=== PATIENT | female | born 1940 | race Caucasian/White ===

== ENCOUNTER 2017-09-07 12:55 | Inpatient (IN) | payer MEDICARE, BC ==
[2017-09-07] MEDS ORDERED: HYDROmorphone 1 MG/ML Syringe IVPUSH ONE (13:28)
--- NOTE | 2017-09-07 13:30 | EDM.PDOC ---
ED HPI GENERAL MEDICAL PROBLEM - General Chief Complaint: General Stated Complaint: MED[facility] Time Seen by Provider: 09/07/17 13:29 Source of Information: Reports: Patient History Limitations: Reports: No Limitations - History of Present Illness INITIAL COMMENTS - FREE TEXT/NARRATIVE: pt had a sudden onset of severe epigastric pain going to her back and then this moved into the chest. She has been mildly sob. Onset: Today, Sudden Duration: Hour(s): Location: Reports: Abdomen Associated Symptoms: Reports: Chest Pain Epigastric Pain Score (Numeric/FACES): 10 - Related Data Allergies Allergy/AdvReac Type Severity Reaction Status Date / Time No Known Allergies Allergy Verified 06/07/16 19:03 Home Meds: Home Meds Fluticasone Propionate [Flovent] 2 puff INH BID 06/07/16 [History] Losartan [Cozaar] 100 mg PO DAILY 06/07/16 [History] Metoprolol Tartrate 50 mg PO BID 06/07/16 [History] Past Medical History HEENT History: Reports: Hard of Hearing, Impaired Vision Cardiovascular History: Reports: Hypertension, [place] Respiratory History: Reports: Asthma, Pneumonia, Recurrent, 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: , 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 Musculoskeletal History: Reports: Arthritis, Fracture Other Musculoskeletal History: Feet Psychiatric History: Reports: Depression Dermatologic History: Reports: Other (See Below) Other Dermatologic History: rash - Infectious Disease History Infectious Disease History: Reports: Chicken Pox, Measles, Mumps - Past Surgical History HEENT Surgical History: Reports: Cataract Surgery GI Surgical History: Reports: Appendectomy, Colonoscopy, Hernia, Inguinal Female Surgical History: Reports: Hysterectomy, Salpingo-Oophorectomy Musculoskeletal Surgical History: Reports: Knee Replacement Social & Family History - Tobacco Use Smoking Status *Q: Never Smoker Second Hand Smoke Exposure: No - Caffeine Use Caffeine Use: Reports: Coffee - Recreational Drug Use Recreational Drug Use: No ED ROS GENERAL - Review of Systems Review Of Systems: See Below Constitutional: Reports: No Symptoms HEENT: Reports: No Symptoms Respiratory: Reports: No Symptoms Cardiovascular: Reports: Chest Pain, Other ( this seemes to move up from the abdoman. ) Endocrine: Reports: No Symptoms GI/Abdominal: Reports: Abdominal Pain, Other ( severe acute onset pain in the epigastric area. ) : Reports: No Symptoms Musculoskeletal: Reports: No Symptoms Skin: Reports: No Symptoms Neurological: Reports: No Symptoms Psychiatric: Reports: No Symptoms ED EXAM, GENERAL - Physical Exam Exam: See Below Free Text/Narrative:: pt arrived with severe pain in the upper bdoman which extended to the chest. It did not hurt when she took a deep breath. Her ekg showed a bundle branch block which was not new to her. Exam Limited By: No Limitations General Appearance: Alert, Severe Distress, Other (pupils are equal and reactive. ) Ears: Normal TMs Nose: Normal Inspection Throat/Mouth: Normal Inspection Head: Atraumatic Neck: Normal Inspection Respiratory/Chest: No Respiratory Distress Cardiovascular: Regular Rate, Rhythm GI/Abdominal: Soft, Non-Tender Rectal (Female) Exam: Deferred Back Exam: Normal Inspection Extremities: Normal Inspection Neurological: Alert, Oriented, Normal Cognition Course - Vital Signs Last Recorded V/S: Last Vital Signs Temp 34.9 C L 09/07/17 13:07 Pulse 65 09/07/17 15:39 Resp 18 09/07/17 15:39 BP 135/112 H 09/07/17 15:39 Pulse Ox 90 L 09/07/17 15:39 - Orders/Labs/Meds Orders: Active Orders 24 hr Category Date Time Status Abdomen Ltd [US] Stat Exams 09/07/17 14:24 Ordered UA W/MICROSCOPIC [URIN] Urgent Lab 09/07/17 13:21 Ordered Sodium Chloride 0.9% [Normal Saline] 1,000 ml Med 09/07/17 14:30 Active IV ASDIRECTED Sodium Chloride 0.9% [Normal Saline] 1,000 ml Med 09/07/17 15:30 Active IV ASDIRECTED Medication Orders Sodium Chloride (Normal Saline) 1,000 mls @ 999 mls/hr IV ASDIRECTED [facility] Last Admin: 09/07/17 14:33 Dose: 999 mls/hr Sodium Chloride (Normal Saline) 1,000 mls @ 999 mls/hr IV ASDIRECTED [facility] Last Admin: 09/07/17 15:38 Dose: 999 mls/hr Labs: Laboratory Tests 09/07/17 09/07/17 09/07/17 Range/Units 13:43 13:46 13:46 WBC 13.3 H (4.5-11.0) K/uL RBC 5.18 (3.30-5.50) M/uL Hgb 15.6 H (12.0-15.0) g/dL Hct 46.3 (36.0-48.0) % MCV 89 (80-98) fL MCH 30 (27-31) pg MCHC 34 (32-36) % Plt Count 241 (150-400) K/uL Neut % (Auto) 85 H (36-66) % Lymph % (Auto) 9 L (24-44) % [place] % (Auto) 6 (2-6) % Eos % (Auto) 0 L (2-4) % Baso % (Auto) 0 (0-1) % D-Dimer, Quantitative (0.0-400.0) ng/mL Sodium (140-148) mmol/L Potassium (3.6-5.2) mmol/L Chloride (100-108) mmol/L Carbon Dioxide (21-32) mmol/L Anion Gap (5.0-14.0) mmol/L BUN (7-18) mg/dL Creatinine (0.6-1.0) mg/dL Est Cr Clr Drug Dosing mL/min Estimated GFR (MDRD) (>60) Glucose (74-106) mg/dL Calcium (8.5-10.1) mg/dL Total Bilirubin (0.2-1.0) mg/dL AST (15-37) U/L ALT (12-78) U/L Alkaline Phosphatase (46-116) U/L Creatine Kinase (26-192) U/L Troponin I < 0.017 (0.000-0.056) ng/mL C-Reactive Protein (0.0-0.3) mg/dL Total Protein (6.4-8.2) g/dL Albumin (3.4-5.0) g/dL Globulin (2.3-3.5) g/dL Albumin/Globulin Ratio (1.2-2.2) Amylase 1384 H (25-115) U/L Lipase (73-393) U/L 09/07/17 09/07/17 09/07/17 Range/Units 13:46 13:46 13:46 WBC (4.5-11.0) K/uL RBC (3.30-5.50) M/uL Hgb (12.0-15.0) g/dL Hct (36.0-48.0) % MCV (80-98) fL MCH (27-31) pg MCHC (32-36) % Plt Count (150-400) K/uL Neut % (Auto) (36-66) % Lymph % (Auto) (24-44) % [place] % (Auto) (2-6) % Eos % (Auto) (2-4) % Baso % (Auto) (0-1) % D-Dimer, Quantitative 1410 H (0.0-400.0) ng/mL Sodium 140 (140-148) mmol/L Potassium 4.3 (3.6-5.2) mmol/L Chloride 103 (100-108) mmol/L Carbon Dioxide 26 (21-32) mmol/L Anion Gap 10.8 (5.0-14.0) mmol/L BUN 27 H (7-18) mg/dL Creatinine 1.3 H (0.6-1.0) mg/dL Est Cr Clr Drug Dosing 32.61 mL/min Estimated GFR (MDRD) 40 L (>60) Glucose 196 H (74-106) mg/dL Calcium 9.5 (8.5-10.1) mg/dL Total Bilirubin 1.1 H D (0.2-1.0) mg/dL AST 320 H D (15-37) U/L ALT 243 H (12-78) U/L Alkaline Phosphatase 133 H (46-116) U/L Creatine Kinase 70 (26-192) U/L Troponin I (0.000-0.056) ng/mL C-Reactive Protein 0.72 H (0.0-0.3) mg/dL Total Protein 7.2 (6.4-8.2) g/dL Albumin 3.4 (3.4-5.0) g/dL Globulin 3.8 H (2.3-3.5) g/dL Albumin/Globulin Ratio 0.9 L (1.2-2.2) Amylase (25-115) U/L Lipase 71256 H (73-393) U/L Meds: Medications Generic Name Dose Route Start Last Admin Trade Name Freq PRN Reason Stop Dose Admin Sodium Chloride 1,000 mls @ 999 mls/hr 09/07/17 14:30 09/07/17 14:33 Normal Saline IV 999 mls/hr ASDIRECTED [facility] Administration Sodium Chloride 1,000 mls @ 999 mls/hr 09/07/17 15:30 09/07/17 15:38 Normal Saline IV 999 mls/hr ASDIRECTED [facility] Administration Discontinued Medications Generic Name Dose Route Start Last Admin Trade Name [place] PRN Reason Stop Dose Admin Hydromorphone HCl 1 mg 09/07/17 13:28 Dilaudid IVPUSH 09/07/17 13:29 Q1H ONE Hydromorphone HCl 1 mg 09/07/17 13:41 Dilaudid IM 09/07/17 13:42 ONETIME ONE Hydromorphone HCl 0.5 mg 09/07/17 14:21 09/07/17 14:33 Dilaudid IVPUSH 09/07/17 14:22 0.5 mg ONETIME ONE Administration Hydromorphone HCl Confirm 09/07/17 14:39 09/07/17 15:06 Dilaudid Administered 09/07/17 14:40 Not Given Dose 0.5 mg .ROUTE .[facility] ONE - Re-Assessments/Exams Free Text/Narrative Re-Assessment/Exam: 09/07/17 14:31 pt has a elevated lipase and her liver enzymes are elevated. Will obtain a limited abdomanal US. 09/07/17 14:32 09/07/17 15:47 us reveals a gb thickened wall. Some fluid around the gb, alot of stones. Her lipase and amylase are elevated. Her pain is muich better at this time. Her vital signs look good. Departure - Departure Time of Disposition: 15:49 Disposition: Admitted As Inpatient 66 Condition: Fair Clinical Impression: Pancreatitis, Cholecystitis, Cholelithiasis, Left bundle branch block - Discharge Information Referrals: PCP,None [Primary Care Provider] - Forms: ED Department Discharge Care Plan Goals: admit to Dr humphries - My Orders Last 24 Hours: My Active Orders 09/07/17 13:21 UA W/MICROSCOPIC [URIN] Urgent 09/07/17 14:24 Abdomen Ltd [US] Stat 09/07/17 14:30 Sodium Chloride 0.9% [Normal Saline] 1,000 ml IV ASDIRECTED 09/07/17 15:30 Sodium Chloride 0.9% [Normal Saline] 1,000 ml IV ASDIRECTED - Assessment/Plan Last 24 Hours: My Active Orders 04/21/18 13:21 UA W/MICROSCOPIC [URIN] Urgent 09/07/17 14:24 Abdomen Ltd [US] Stat 09/07/17 14:30 Sodium Chloride 0.9% [Normal Saline] 1,000 ml IV ASDIRECTED 09/07/17 15:30 Sodium Chloride 0.9% [Normal Saline] 1,000 ml IV ASDIRECTED
[2017-09-07] MEDS ORDERED: HYDROmorphone 1 MG/ML Syringe IM ONE (13:41)
[2017-09-07] MEDS ORDERED: HYDROmorphone 0.5 MG/0.5 ML Syringe IVPUSH ONE (14:21)
[2017-09-07] MEDS ORDERED: Sodium Chloride 0.9% 1,000 ML IV SCH ×2 (14:30→15:30)
[2017-09-07] MEDS ORDERED: HYDROmorphone 0.5 MG/0.5 ML Syringe ONE (14:39)
--- NOTE | 2017-09-07 17:50 | PCM.HP ---
H&P History of Present Illness - General Date of Service: 09/07/17 Admit Problem/Dx: Admission Diagnosis/Problem Admission Diagnosis/Problem Pancreatitis Source of Information: Patient, Family, Provider, RN Notes Reviewed History Limitations: Reports: No Limitations - History of Present Illness Initial Comments - Free Text/Narative: This patient is a 77-year-old woman who is admitted through the emergency department for further evaluation and management of pancreatitis and cholecystitis. She felt well until this morning when she developed abrupt onset of supraumbilical abdominal pain associated with nausea vomiting and diaphoresis. Pain is described as a sharp intense pain occurring in the supraumbilical region of the abdomen without radiation. She is noted no precipitating or relieving factors, pain has improved after she received pain medication in the emergency department. White blood cell count is mildly to moderately elevated, ultrasound of the abdomen shows evidence of gallbladder wall thickening as well as several stones within the gallbladder. She denies significant alcohol intake. D-dimer was noted to be elevated when obtained in the emergency department, she does have a known history of deep vein thrombosis as well as pulmonary emboli. Epigastric Pain Score (Numeric/FACES): 10 - Related Data Allergies/Adverse Reactions: Allergies Allergy/AdvReac Type Severity Reaction Status Date / Time No Known Allergies Allergy Verified 06/07/16 19:03 Home Medications: Home Meds Fluticasone Propionate [Flovent] 2 puff INH BID 06/07/16 [History] Losartan [Cozaar] 100 mg PO DAILY 06/07/16 [History] Metoprolol Tartrate 37.5 mg PO BID 06/07/16 [History] Albuterol/Ipratropium [Combivent Respimat] 1 puff INH QID 09/07/17 [History] Furosemide 1 tab PO DAILY 09/07/17 [History] Multivitamin [Daily Derrick] 1 tab PO DAILY 09/07/17 [History] Simvastatin [Zocor] 1 tab PO BEDTIME 09/07/17 [History] Past Medical History HEENT History: Reports: Hard of Hearing, Impaired Vision Cardiovascular History: Reports: Hypertension, [place] Respiratory History: Reports: Asthma, 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, Recurrent, 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: , 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 Musculoskeletal History: Reports: Arthritis, Fracture Other Musculoskeletal History: Feet Psychiatric History: Reports: Depression Dermatologic History: Reports: Other (See Below) Other Dermatologic History: rash - Infectious Disease History Infectious Disease History: Reports: Chicken Pox, Measles, Mumps - Past Surgical History HEENT Surgical History: Reports: Cataract Surgery GI Surgical History: Reports: Appendectomy, Colonoscopy, Hernia, Inguinal Female Surgical History: Reports: Hysterectomy, Salpingo-Oophorectomy Musculoskeletal Surgical History: Reports: Knee Replacement Social & Family History - Tobacco Use Smoking Status *Q: Never Smoker Second Hand Smoke Exposure: No - Caffeine Use Caffeine Use: Reports: Coffee - Recreational Drug Use Recreational Drug Use: No H&P Review of Systems - Review of Systems: Review Of Systems: See Below General: Reports: Diaphoresis, Decreased Appetite. Denies: Fever, Chills HEENT: Reports: No Symptoms Pulmonary: Reports: No Symptoms Cardiovascular: Reports: No Symptoms Gastrointestinal: Reports: Abdominal Pain, Diarrhea, Decreased Appetite, Distension, Nausea, Vomiting. Denies: Black Stool, Bloody Stool, Constipation, Difficulty Swallowing Genitourinary: Reports: No Symptoms Musculoskeletal: Reports: No Symptoms Skin: Reports: No Symptoms Psychiatric: Reports: No Symptoms Neurological: Reports: No Symptoms Hematologic/Lymphatic: Reports: No Symptoms Immunologic: Reports: No Symptoms Exam - Exam Exam: See Below - Vital Signs Vital Signs: Last Vital Signs Temp 94.8 F L 09/07/17 13:07 Pulse 61 09/07/17 17:12 Resp 14 09/07/17 17:12 BP 233/96 H 09/07/17 17:14 Pulse Ox 93 L 09/07/17 17:12 Weight: 259 lb - Exam Quality Assessment: DVT Prophylaxis General: Alert, Oriented, Cooperative, Mild Distress HEENT: Conjunctiva Clear, Hearing Intact, Normal Nasal Septum, Posterior Pharynx Clear, Pupils Equal. No: Mucosa Moist & [place] Neck: Supple, Trachea Midline, +2 Carotid Pulse wo Bruit Lungs: Clear to Auscultation, Normal Respiratory Effort Cardiovascular: Regular Rate, Regular Rhythm, Normal S1, Normal S2. No: Systolic Murmur, Diastolic Murmur GI/Abdominal Exam: Soft, No Organomegaly, Distended, Tender. No: Guarding, Rigid, Rebound Back Exam: Normal Inspection, Full Range of Motion Extremities: Non-Tender, No Pedal Edema Skin: Warm, Dry, Intact Neurological: Cranial Nerves Intact, Strength Equal Bilateral, Normal Speech, Normal Tone, Sensation Intact. No: Focal Deficit Neuro Extensive - Mental Status: Alert, Oriented x3, Normal Mood/Affect, Normal Cognition, Memory Intact - Patient Data Lab Results Last 24 hrs: Laboratory Results - last 24 hr 09/07/17 09/07/17 09/07/17 Range/Units 13:43 13:46 13:46 WBC 13.3 H (4.5-11.0) K/uL RBC 5.18 (3.30-5.50) M/uL Hgb 15.6 H (12.0-15.0) g/dL Hct 46.3 (36.0-48.0) % MCV 89 (80-98) fL MCH 30 (27-31) pg MCHC 34 (32-36) % Plt Count 241 (150-400) K/uL Neut % (Auto) 85 H (36-66) % Lymph % (Auto) 9 L (24-44) % [place] % (Auto) 6 (2-6) % Eos % (Auto) 0 L (2-4) % Baso % (Auto) 0 (0-1) % D-Dimer, Quantitative (0.0-400.0) ng/mL Sodium (140-148) mmol/L Potassium (3.6-5.2) mmol/L Chloride (100-108) mmol/L Carbon Dioxide (21-32) mmol/L Anion Gap (5.0-14.0) mmol/L BUN (7-18) mg/dL Creatinine (0.6-1.0) mg/dL Est Cr Clr Drug Dosing mL/min Estimated GFR (MDRD) (>60) Glucose (74-106) mg/dL Calcium (8.5-10.1) mg/dL Total Bilirubin (0.2-1.0) mg/dL AST (15-37) U/L ALT (12-78) U/L Alkaline Phosphatase (46-116) U/L Creatine Kinase (26-192) U/L Troponin I < 0.017 (0.000-0.056) ng/mL C-Reactive Protein (0.0-0.3) mg/dL Total Protein (6.4-8.2) g/dL Albumin (3.4-5.0) g/dL Globulin (2.3-3.5) g/dL Albumin/Globulin Ratio (1.2-2.2) Amylase 1384 H (25-115) U/L Lipase (73-393) U/L Urine Color Urine Appearance Urine pH (4.5-8.0) Ur Specific [place] (1.008-1.030) Urine Protein (NEGATIVE) mg/dL Urine Glucose (UA) (NEGATIVE) mg/dL Urine Ketones (NEGATIVE) mg/dL Urine Occult Blood (NEGATIVE) Urine Nitrite (NEGATIVE) Urine Bilirubin (NEGATIVE) Urine Urobilinogen (NORMAL) mg/dL Ur Leukocyte Esterase (NEGATIVE) Urine RBC (0-5) Urine WBC (0-5) Ur Epithelial Cells Amorphous Sediment Urine Bacteria Urine Mucus 09/07/17 09/07/17 09/07/17 Range/Units 13:46 13:46 13:46 WBC (4.5-11.0) K/uL RBC (3.30-5.50) M/uL Hgb (12.0-15.0) g/dL Hct (36.0-48.0) % MCV (80-98) fL MCH (27-31) pg MCHC (32-36) % Plt Count (150-400) K/uL Neut % (Auto) (36-66) % Lymph % (Auto) (24-44) % [place] % (Auto) (2-6) % Eos % (Auto) (2-4) % Baso % (Auto) (0-1) % D-Dimer, Quantitative 1410 H (0.0-400.0) ng/mL Sodium 140 (140-148) mmol/L Potassium 4.3 (3.6-5.2) mmol/L Chloride 103 (100-108) mmol/L Carbon Dioxide 26 (21-32) mmol/L Anion Gap 10.8 (5.0-14.0) mmol/L BUN 27 H (7-18) mg/dL Creatinine 1.3 H (0.6-1.0) mg/dL Est Cr Clr Drug Dosing 32.61 mL/min Estimated GFR (MDRD) 40 L (>60) Glucose 196 H (74-106) mg/dL Calcium 9.5 (8.5-10.1) mg/dL Total Bilirubin 1.1 H D (0.2-1.0) mg/dL AST 320 H D (15-37) U/L ALT 243 H (12-78) U/L Alkaline Phosphatase 133 H (46-116) U/L Creatine Kinase 70 (26-192) U/L Troponin I (0.000-0.056) ng/mL C-Reactive Protein 0.72 H (0.0-0.3) mg/dL Total Protein 7.2 (6.4-8.2) g/dL Albumin 3.4 (3.4-5.0) g/dL Globulin 3.8 H (2.3-3.5) g/dL Albumin/Globulin Ratio 0.9 L (1.2-2.2) Amylase (25-115) U/L Lipase 67899 H (73-393) U/L Urine Color Urine Appearance Urine pH (4.5-8.0) Ur Specific [place] (1.008-1.030) Urine Protein (NEGATIVE) mg/dL Urine Glucose (UA) (NEGATIVE) mg/dL Urine Ketones (NEGATIVE) mg/dL Urine Occult Blood (NEGATIVE) Urine Nitrite (NEGATIVE) Urine Bilirubin (NEGATIVE) Urine Urobilinogen (NORMAL) mg/dL Ur Leukocyte Esterase (NEGATIVE) Urine RBC (0-5) Urine WBC (0-5) Ur Epithelial Cells Amorphous Sediment Urine Bacteria Urine Mucus 09/07/17 Range/Units 16:43 WBC (4.5-11.0) K/uL RBC (3.30-5.50) M/uL Hgb (12.0-15.0) g/dL Hct (36.0-48.0) % MCV (80-98) fL MCH (27-31) pg MCHC (32-36) % Plt Count (150-400) K/uL Neut % (Auto) (36-66) % Lymph % (Auto) (24-44) % [place] % (Auto) (2-6) % Eos % (Auto) (2-4) % Baso % (Auto) (0-1) % D-Dimer, Quantitative (0.0-400.0) ng/mL Sodium (140-148) mmol/L Potassium (3.6-5.2) mmol/L Chloride (100-108) mmol/L Carbon Dioxide (21-32) mmol/L Anion Gap (5.0-14.0) mmol/L BUN (7-18) mg/dL Creatinine (0.6-1.0) mg/dL Est Cr Clr Drug Dosing mL/min Estimated GFR (MDRD) (>60) Glucose (74-106) mg/dL Calcium (8.5-10.1) mg/dL Total Bilirubin (0.2-1.0) mg/dL AST (15-37) U/L ALT (12-78) U/L Alkaline Phosphatase (46-116) U/L Creatine Kinase (26-192) U/L Troponin I (0.000-0.056) ng/mL C-Reactive Protein (0.0-0.3) mg/dL Total Protein (6.4-8.2) g/dL Albumin (3.4-5.0) g/dL Globulin (2.3-3.5) g/dL Albumin/Globulin Ratio (1.2-2.2) Amylase (25-115) U/L Lipase (73-393) U/L Urine Color Yellow Urine Appearance Cloudy Urine pH 6.0 (4.5-8.0) Ur Specific [place] 1.015 (1.008-1.030) Urine Protein Negative (NEGATIVE) mg/dL Urine Glucose (UA) Normal (NEGATIVE) mg/dL Urine Ketones Negative (NEGATIVE) mg/dL Urine Occult Blood Negative (NEGATIVE) Urine Nitrite Positive H (NEGATIVE) Urine Bilirubin Negative (NEGATIVE) Urine Urobilinogen Normal (NORMAL) mg/dL Ur Leukocyte Esterase Negative (NEGATIVE) Urine RBC 0-5 (0-5) Urine WBC 0-5 (0-5) Ur Epithelial Cells Few Amorphous Sediment Not seen Urine Bacteria Many Urine Mucus Not seen Result Diagrams: 09/07/17 13:46 09/07/17 13:46 *Q Meaningful Use (ADM) - VTE Risk Assess *Q Each Risk Factor Represents 1 Point: Obesity ( BMI > 25 kg/m2) Total Score 1 Point Risk Factors: 1 Each Risk Factor Represents 2 Points: None Total Score 2 Point Risk Factors: 0 Each Risk Factor Represents 3 Points: Age 75 Years or Greater, History of DVT/PE Total Score 3 Point Risk Factors: 6 Each Risk Factor Represents 5 Points: None Total Score 5 Point Risk Factors: 0 Venous Thromboembolism Risk Factor Score *Q: 7 Problem List Initiated/Reviewed/Updated: Yes Orders Last 24hrs: Active Orders 24 hr Category Date Time Status Patient Status Manage Transfer [TRANSFER] Routine ADT 04/21/18 17:36 Active Abdomen Ltd [US] Stat Exams 09/07/17 14:24 Ordered UA W/MICROSCOPIC [URIN] Urgent Lab 09/07/17 16:43 Ordered Sodium Chloride 0.9% [Normal Saline] 1,000 ml Med 09/07/17 14:30 Active IV ASDIRECTED Sodium Chloride 0.9% [Normal Saline] 1,000 ml Med 09/07/17 15:30 Active IV ASDIRECTED Resuscitation Status Routine Resus Stat 09/07/17 17:37 Ordered Medication Orders Sodium Chloride (Normal Saline) 1,000 mls @ 999 mls/hr IV ASDIRECTED [facility] Last Admin: 09/07/17 14:33 Dose: 999 mls/hr Sodium Chloride (Normal Saline) 1,000 mls @ 999 mls/hr IV ASDIRECTED [facility] Last Admin: 09/07/17 15:38 Dose: 999 mls/hr Assessment/Plan Comment:: ASSESSMENT AND PLAN PANCREATITIS/CHOLECYSTITIS-abrupt onset of supraumbilical abdominal pain this morning. On evaluation in the emergency department lipase level is markedly elevated at 11,000, white blood cell count mildly to moderately elevated, hepatocellular enzymes elevated, with modest elevation in bilirubin and alkaline phosphatase. Ultrasound shows evidence of gallbladder wall thickening with several stones within the gallbladder. Pancreatitis likely secondary to a common duct stone. -IV fluids for hydration -nothing by mouth -pain medication and antiemetic therapy as needed -Unasyn 1.5 g IV every 6 hours -consult Dr. Garibay in a.m. for surgical opinion ELEVATED N-[id number]-bnyhjij of deep vein thrombosis and pulmonary embolism, no longer on long-term anticoagulation. Chronic kidney disease with GFR close to 30 precludes use of IV contrast - consider CT angiogram in a.m. if renal function improves with hydration - cover with therapeutic Lovenox 120 mg subcutaneous every 12 hours until further evaluation can be obtained CHRONIC KIDNEY DISEASE STAGE III -Closely monitor urine output and renal function MAINTENANCE ISSUES -DVT prophylaxis; current therapy with Lovenox should provide adequate DVT prophylaxis -GI prophylaxis; Protonix 40 mg IV every 24 hours -Elo catheter; not indicated -Nutrition;Nothing by mouth -Nicotine dependence; not required CODE STATUS- FULL CODE ADMISSION STATUS-patient will be admitted to inpatient status, expect at least a 2 night hospital stay for evaluation and management of problems as outlined above. At the time of this admission I do not reasonably expected evaluation and management of this problem will require more than a 96 hour hospital stay. DISPOSITION-anticipate discharge to home after the hospital stay. 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
[2017-09-07] MEDS ORDERED: Sodium Chloride 0.9% 10 ML Syringe FLUSH PRN (18:47)
[2017-09-07] MEDS ORDERED: Naloxone 0.4 MG/ML SDV IVPUSH PRN (18:47)
[2017-09-07] MEDS ORDERED: Ondansetron 4 MG/2 ML SDV IV PRN (18:47)
[2017-09-07] MEDS ORDERED: HYDROmorphone/Normal Saline 15 MG/30 ML PCA IV PRN (18:47)
[2017-09-07] MEDS ORDERED: Albuterol/Ipratropium 3.0-0.5 MG/3 ML Neb Soln NEB PRN (18:47)
[2017-09-07] MEDS ORDERED: Enoxaparin 120 MG/0.8 ML Syringe SUBCUT SCH (19:00)
[2017-09-07] MEDS ORDERED: Pantoprazole 40 MG Vial IVPUSH SCH (19:00)
[2017-09-07] MEDS: Metoprolol Tartrate 25 MG Tab PO SCH (20:34)
[2017-09-07] MEDS ORDERED: Enoxaparin 40 MG/0.4 ML Syringe ONE (20:37)
[2017-09-07] MEDS: Albuterol/Ipratropium 3.0-0.5 MG/3 ML Neb Soln INH SCH ×2 (20:42→22:29)
[2017-09-07] MEDS: Sodium Chloride 0.9% 1,000 ML IV SCH (20:43)
[2017-09-07] MEDS: Ampicillin/Sulbactam Na 1.5 GM in Sodium Chloride 0.9% 50 ML IV SCH (20:48)
[2017-09-07] MEDS: Simvastatin 20 MG Tab PO SCH (20:59)
[2017-09-07] MEDS ORDERED: Mometasone Furoate HFA 200 mcg/Puff 13 GM Inhaler INH SCH (21:00)
[2017-09-07] MEDS ORDERED: Mometasone Furoate Powder 220 MCG/Puff 14 Dose Inhaler INH SCH (21:00)
[2017-09-08] MEDS: Ampicillin/Sulbactam Na 1.5 GM in Sodium Chloride 0.9% 50 ML IV SCH ×4 (01:48→19:35)
[2017-09-08] MEDS: Sodium Chloride 0.9% 1,000 ML IV SCH ×3 (02:00→18:10)
[2017-09-08] MEDS: Albuterol/Ipratropium 3.0-0.5 MG/3 ML Neb Soln INH SCH ×4 (07:32→20:50)
[2017-09-08] MEDS: Mometasone Furoate HFA 200 mcg/Puff 13 GM Inhaler INH SCH ×2 (08:20→20:50)
[2017-09-08] MEDS: Losartan 50 MG Tab PO SCH (09:52)
[2017-09-08] MEDS: Enoxaparin 120 MG/0.8 ML Syringe SUBCUT SCH ×2 (09:53→20:52)
[2017-09-08] MEDS: Metoprolol Tartrate 25 MG Tab PO SCH ×2 (09:53→20:51)
[2017-09-08] MEDS: Magnesium Sulfate/Water 2 GM in Premix Bag 1 BAG IV SCH ×2 (09:54→15:54)
--- NOTE | 2017-09-08 10:39 | PCM.PN ---
- General Info Date of Service: 09/08/17 Subjective Update: Ms. Christianson has been stable overnight, supraumbilical pain improved but not resolved. White blood cell count remains elevated, lipase is improved to 1100. Renal function has improved to the point where we can proceed with CT angiogram of the chest to evaluate for pulmonary embolism. - Review of Systems General: Reports: Weakness. Denies: Fever, Chills Pulmonary: Reports: No Symptoms Cardiovascular: Reports: No Symptoms Gastrointestinal: Reports: Abdominal Pain. Denies: Diarrhea, Difficulty Swallowing, Nausea, Vomiting - Patient Data Vitals - Most Recent: Last Vital Signs Temp 99.9 F 09/08/17 08:00 Pulse 73 09/08/17 09:53 Resp 16 09/08/17 08:00 BP 183/84 H 09/08/17 09:53 Pulse Ox 95 09/08/17 09:22 Weight - Most Recent: 265 lb 8 oz I&O - Last 24 Hours: Intake & Output 09/07/17 09/08/17 09/08/17 22:59 06:59 14:59 Intake Total 1680 1357 Output Total 400 300 400 Balance 1280 1057 -400 Lab Results Last 24 Hours: Laboratory Results - last 24 hr 09/07/17 09/07/17 09/07/17 Range/Units 13:43 13:46 13:46 WBC 13.3 H (4.5-11.0) K/uL RBC 5.18 (3.30-5.50) M/uL Hgb 15.6 H (12.0-15.0) g/dL Hct 46.3 (36.0-48.0) % MCV 89 (80-98) fL MCH 30 (27-31) pg MCHC 34 (32-36) % Plt Count 241 (150-400) K/uL Neut % (Auto) 85 H (36-66) % Lymph % (Auto) 9 L (24-44) % [place] % (Auto) 6 (2-6) % Eos % (Auto) 0 L (2-4) % Baso % (Auto) 0 (0-1) % D-Dimer, Quantitative (0.0-400.0) ng/mL Sodium (140-148) mmol/L Potassium (3.6-5.2) mmol/L Chloride (100-108) mmol/L Carbon Dioxide (21-32) mmol/L Anion Gap (5.0-14.0) mmol/L BUN (7-18) mg/dL Creatinine (0.6-1.0) mg/dL Est Cr Clr Drug Dosing mL/min Estimated GFR (MDRD) (>60) Glucose (74-106) mg/dL Calcium (8.5-10.1) mg/dL Magnesium (1.8-2.4) mg/dL Total Bilirubin (0.2-1.0) mg/dL AST (15-37) U/L ALT (12-78) U/L Alkaline Phosphatase (46-116) U/L Creatine Kinase (26-192) U/L Troponin I < 0.017 (0.000-0.056) ng/mL C-Reactive Protein (0.0-0.3) mg/dL Total Protein (6.4-8.2) g/dL Albumin (3.4-5.0) g/dL Globulin (2.3-3.5) g/dL Albumin/Globulin Ratio (1.2-2.2) Amylase 1384 H (25-115) U/L Lipase (73-393) U/L Urine Color Urine Appearance Urine pH (4.5-8.0) Ur Specific [place] (1.008-1.030) Urine Protein (NEGATIVE) mg/dL Urine Glucose (UA) (NEGATIVE) mg/dL Urine Ketones (NEGATIVE) mg/dL Urine Occult Blood (NEGATIVE) Urine Nitrite (NEGATIVE) Urine Bilirubin (NEGATIVE) Urine Urobilinogen (NORMAL) mg/dL Ur Leukocyte Esterase (NEGATIVE) Urine RBC (0-5) Urine WBC (0-5) Ur Epithelial Cells Amorphous Sediment Urine Bacteria Urine Mucus 09/07/17 09/07/17 09/07/17 Range/Units 13:46 13:46 13:46 WBC (4.5-11.0) K/uL RBC (3.30-5.50) M/uL Hgb (12.0-15.0) g/dL Hct (36.0-48.0) % MCV (80-98) fL MCH (27-31) pg MCHC (32-36) % Plt Count (150-400) K/uL Neut % (Auto) (36-66) % Lymph % (Auto) (24-44) % [place] % (Auto) (2-6) % Eos % (Auto) (2-4) % Baso % (Auto) (0-1) % D-Dimer, Quantitative 1410 H (0.0-400.0) ng/mL Sodium 140 (140-148) mmol/L Potassium 4.3 (3.6-5.2) mmol/L Chloride 103 (100-108) mmol/L Carbon Dioxide 26 (21-32) mmol/L Anion Gap 10.8 (5.0-14.0) mmol/L BUN 27 H (7-18) mg/dL Creatinine 1.3 H (0.6-1.0) mg/dL Est Cr Clr Drug Dosing 32.61 mL/min Estimated GFR (MDRD) 40 L (>60) Glucose 196 H (74-106) mg/dL Calcium 9.5 (8.5-10.1) mg/dL Magnesium (1.8-2.4) mg/dL Total Bilirubin 1.1 H D (0.2-1.0) mg/dL AST 320 H D (15-37) U/L ALT 243 H (12-78) U/L Alkaline Phosphatase 133 H (46-116) U/L Creatine Kinase 70 (26-192) U/L Troponin I (0.000-0.056) ng/mL C-Reactive Protein 0.72 H (0.0-0.3) mg/dL Total Protein 7.2 (6.4-8.2) g/dL Albumin 3.4 (3.4-5.0) g/dL Globulin 3.8 H (2.3-3.5) g/dL Albumin/Globulin Ratio 0.9 L (1.2-2.2) Amylase (25-115) U/L Lipase 72593 H (73-393) U/L Urine Color Urine Appearance Urine pH (4.5-8.0) Ur Specific [place] (1.008-1.030) Urine Protein (NEGATIVE) mg/dL Urine Glucose (UA) (NEGATIVE) mg/dL Urine Ketones (NEGATIVE) mg/dL Urine Occult Blood (NEGATIVE) Urine Nitrite (NEGATIVE) Urine Bilirubin (NEGATIVE) Urine Urobilinogen (NORMAL) mg/dL Ur Leukocyte Esterase (NEGATIVE) Urine RBC (0-5) Urine WBC (0-5) Ur Epithelial Cells Amorphous Sediment Urine Bacteria Urine Mucus 09/07/17 09/08/17 09/08/17 Range/Units 16:43 06:00 06:00 WBC 14.3 H (4.5-11.0) K/uL RBC 5.09 (3.30-5.50) M/uL Hgb 15.7 H (12.0-15.0) g/dL Hct 46.2 (36.0-48.0) % MCV 91 (80-98) fL MCH 31 (27-31) pg MCHC 34 (32-36) % Plt Count 174 (150-400) K/uL Neut % (Auto) 84 H (36-66) % Lymph % (Auto) 7 L (24-44) % [place] % (Auto) 8 H (2-6) % Eos % (Auto) 1 L (2-4) % Baso % (Auto) 0 (0-1) % D-Dimer, Quantitative (0.0-400.0) ng/mL Sodium (140-148) mmol/L Potassium (3.6-5.2) mmol/L Chloride (100-108) mmol/L Carbon Dioxide (21-32) mmol/L Anion Gap (5.0-14.0) mmol/L BUN (7-18) mg/dL Creatinine (0.6-1.0) mg/dL Est Cr Clr Drug Dosing mL/min Estimated GFR (MDRD) (>60) Glucose (74-106) mg/dL Calcium (8.5-10.1) mg/dL Magnesium (1.8-2.4) mg/dL Total Bilirubin (0.2-1.0) mg/dL AST (15-37) U/L ALT (12-78) U/L Alkaline Phosphatase (46-116) U/L Creatine Kinase (26-192) U/L Troponin I (0.000-0.056) ng/mL C-Reactive Protein (0.0-0.3) mg/dL Total Protein (6.4-8.2) g/dL Albumin (3.4-5.0) g/dL Globulin (2.3-3.5) g/dL Albumin/Globulin Ratio (1.2-2.2) Amylase (25-115) U/L Lipase 1712 H (73-393) U/L Urine Color Yellow Urine Appearance Cloudy Urine pH 6.0 (4.5-8.0) Ur Specific [place] 1.015 (1.008-1.030) Urine Protein Negative (NEGATIVE) mg/dL Urine Glucose (UA) Normal (NEGATIVE) mg/dL Urine Ketones Negative (NEGATIVE) mg/dL Urine Occult Blood Negative (NEGATIVE) Urine Nitrite Positive H (NEGATIVE) Urine Bilirubin Negative (NEGATIVE) Urine Urobilinogen Normal (NORMAL) mg/dL Ur Leukocyte Esterase Negative (NEGATIVE) Urine RBC 0-5 (0-5) Urine WBC 0-5 (0-5) Ur Epithelial Cells Few Amorphous Sediment Not seen Urine Bacteria Many Urine Mucus Not seen 09/08/17 Range/Units 06:00 WBC (4.5-11.0) K/uL RBC (3.30-5.50) M/uL Hgb (12.0-15.0) g/dL Hct (36.0-48.0) % MCV (80-98) fL MCH (27-31) pg MCHC (32-36) % Plt Count (150-400) K/uL Neut % (Auto) (36-66) % Lymph % (Auto) (24-44) % [place] % (Auto) (2-6) % Eos % (Auto) (2-4) % Baso % (Auto) (0-1) % D-Dimer, Quantitative (0.0-400.0) ng/mL Sodium 143 (140-148) mmol/L Potassium 4.7 (3.6-5.2) mmol/L Chloride 108 (100-108) mmol/L Carbon Dioxide 27 (21-32) mmol/L Anion Gap 8.1 (5.0-14.0) mmol/L BUN 20 H (7-18) mg/dL Creatinine 1.0 (0.6-1.0) mg/dL Est Cr Clr Drug Dosing 42.32 mL/min Estimated GFR (MDRD) 54 L (>60) Glucose 118 H (74-106) mg/dL Calcium 8.4 L (8.5-10.1) mg/dL Magnesium 1.5 L (1.8-2.4) mg/dL Total Bilirubin 0.8 (0.2-1.0) mg/dL AST 180 H (15-37) U/L ALT 276 H (12-78) U/L Alkaline Phosphatase 125 H (46-116) U/L Creatine Kinase (26-192) U/L Troponin I (0.000-0.056) ng/mL C-Reactive Protein (0.0-0.3) mg/dL Total Protein 6.6 (6.4-8.2) g/dL Albumin 3.0 L (3.4-5.0) g/dL Globulin 3.6 H (2.3-3.5) g/dL Albumin/Globulin Ratio 0.8 L (1.2-2.2) Amylase (25-115) U/L Lipase (73-393) U/L Urine Color Urine Appearance Urine pH (4.5-8.0) Ur Specific [place] (1.008-1.030) Urine Protein (NEGATIVE) mg/dL Urine Glucose (UA) (NEGATIVE) mg/dL Urine Ketones (NEGATIVE) mg/dL Urine Occult Blood (NEGATIVE) Urine Nitrite (NEGATIVE) Urine Bilirubin (NEGATIVE) Urine Urobilinogen (NORMAL) mg/dL Ur Leukocyte Esterase (NEGATIVE) Urine RBC (0-5) Urine WBC (0-5) Ur Epithelial Cells Amorphous Sediment Urine Bacteria Urine Mucus Med Orders - Current: Current Medications Acetaminophen (Tylenol) 650 mg PO Q4H PRN PRN Reason: Pain (Mild 1-3)/fever Albuterol/Ipratropium (Duoneb 3.0-0.5 Mg/3 Ml) 3 ml INH QIDRT [facility] Last Admin: 09/08/17 07:32 Dose: 3 ml Albuterol/Ipratropium (Duoneb 3.0-0.5 Mg/3 Ml) 3 ml NEB QID PRN PRN Reason: Shortness Of Breath/wheezing Enoxaparin Sodium (Lovenox) 120 mg SUBCUT Q12H [facility] Last Admin: 09/08/17 09:53 Dose: 120 mg Hydromorphone HCl (Dilaudid Roulette Dealer 15 Mg In Ns 30 Ml) 0 mg IV ASDIRECTED PRN; Protocol PRN Reason: Pain Last Admin: 09/07/17 20:44 Dose: 15 mg Sodium Chloride (Normal Saline) 1,000 mls @ 125 mls/hr IV ASDIRECTED [facility] Last Admin: 09/08/17 08:53 Dose: 125 mls/hr Ampicillin Sodium/Sulbactam (Sodium 1.5 gm/ Sodium Chloride) 50 mls @ 100 mls/ hr IV Q6H [facility] Last Admin: 09/08/17 08:52 Dose: 100 mls/hr Magnesium Sulfate 2 gm/ Premix 50 mls @ 25 mls/hr IV Q6H [facility] Stop: 09/08/17 17:59 Last Admin: 09/08/17 09:54 Dose: 25 mls/hr Losartan Potassium (Cozaar) 100 mg PO DAILY [facility] Last Admin: 09/08/17 09:52 Dose: 100 mg Metoprolol Tartrate (Lopressor) 37.5 mg PO BID [facility] Last Admin: 09/08/17 09:53 Dose: 37.5 mg Mometasone Furoate (Asmanex Hfa 200mcg) 0 gm INH BIDRT [facility] Last Admin: 09/08/17 08:20 Dose: 2 puff Naloxone HCl (Narcan) 0.4 mg IVPUSH Q2M PRN PRN Reason: Respiratory Distress Ondansetron HCl (Zofran) 4 mg IV Q4H PRN PRN Reason: Nausea/Vomiting Pantoprazole Sodium (Protonix Iv) 40 mg IVPUSH Q24H [facility] Simvastatin (Zocor) 10 mg PO BEDTIME [facility] Last Admin: 09/07/17 20:59 Dose: 10 mg Sodium Chloride (Saline Flush) 10 ml FLUSH ASDIRECTED PRN PRN Reason: Keep Vein Open Discontinued Medications Enoxaparin Sodium (Lovenox) 120 mg SUBCUT Q12H [facility] Last Admin: 09/07/17 21:00 Dose: Not Given Enoxaparin Sodium (Lovenox) Confirm Administered Dose 120 mg .ROUTE .STK-MED ONE Stop: 09/07/17 20:38 Last Admin: 09/07/17 20:53 Dose: 120 mg Hydromorphone HCl (Dilaudid) 1 mg IVPUSH Q1H ONE Stop: 09/07/17 13:29 Hydromorphone HCl (Dilaudid) 1 mg IM ONETIME ONE Stop: 09/07/17 13:42 Hydromorphone HCl (Dilaudid) 0.5 mg IVPUSH ONETIME ONE Stop: 09/07/17 14:22 Last Admin: 09/07/17 14:33 Dose: 0.5 mg Hydromorphone HCl (Dilaudid) Confirm Administered Dose 0.5 mg .ROUTE .STK-MED ONE Stop: 09/07/17 14:40 Last Admin: 09/07/17 15:06 Dose: Not Given Sodium Chloride (Normal Saline) 1,000 mls @ 999 mls/hr IV ASDIRECTED [facility] Last Admin: 09/07/17 14:33 Dose: 999 mls/hr Sodium Chloride (Normal Saline) 1,000 mls @ 999 mls/hr IV ASDIRECTED [facility] Last Admin: 09/07/17 15:38 Dose: 999 mls/hr Ampicillin Sodium/Sulbactam (Sodium 1.5 gm/ Sodium Chloride) 50 mls @ 100 mls/ hr IV Q6H [facility] Last Admin: 09/08/17 01:48 Dose: 100 mls/hr Mometasone Furoate (Asmanex Hfa 200mcg) 0 gm INH BID [facility] Last Admin: 09/07/17 20:57 Dose: 2 inhaler Pantoprazole Sodium (Protonix Iv) 40 mg IVPUSH Q24H [facility] Last Admin: 09/07/17 20:38 Dose: 40 mg - Exam Quality Assessment: DVT Prophylaxis General: Alert, Oriented, Cooperative, Mild Distress Lungs: Clear to Auscultation, Normal Respiratory Effort Cardiovascular: Regular Rate, Regular Rhythm, No Murmurs GI/Abdominal Exam: Soft, No Organomegaly, Tender. No: Distended, Guarding, Rigid, Rebound Extremities: Non-Tender, No Pedal Edema Skin: Warm, Dry, Intact - Problem List Review Problem List Initiated/Reviewed/Updated: Yes - My Orders Last 24 Hours: My Active Orders 09/07/17 17:37 Resuscitation Status Routine 09/07/17 18:47 Patient Status [ADT] Routine Ambulate [RC] QID Communication Order [RC] STAT Height and Weight [RC] DAILY Intake and Output [RC] QSHIFT Notify Provider Consults [RC] ASDIRECTED Notify Provider Vital Signs [RC] ASDIRECTED Notify Provider [RC] PRN Oxygen Therapy [RC] PRN BAR TENDER Record [RC] PER UNIT ROUTINE Peripheral IV Care [RC] . DIRECTED Pulse Oximetry [RC] CONTINUOUS RT Aerosol Therapy [RC] ASDIRECTED Up With Assistance [RC] ASDIRECTED Up to Chair [RC] QID Vital Signs [RC] Q4H Consult to PICC Team [CONS] Routine Consult to Physician [CONS] Routine Acetaminophen [Tylenol] 650 mg PO Q4H PRN Albuterol/Ipratropium [DuoNeb 3.0-0.5 MG/3 ML] 3 ml NEB QID PRN HYDROmorphone/Normal Saline [Dilaudid BAR TENDER 15 MG in NS 30 ML] See Protocol IV ASDIRECTED PRN Naloxone [Narcan] 0.4 mg IVPUSH Q2M PRN Ondansetron [Zofran] 4 mg IV Q4H PRN Sodium Chloride 0.9% [Normal Saline] 1,000 ml IV ASDIRECTED Sodium Chloride 0.9% [Saline Flush] 10 ml FLUSH ASDIRECTED PRN Central Venous Line Insertion [OM.PC] Routine Medication Discontinuation Instructions [OM.PC] Stat Peripheral IV Insertion Adult [OM.PC] Routine Sequential Compression Device [OM.PC] Per Unit Routine VTE Pharmacological Contraindications [AST] Per Unit Routine 09/07/17 21:00 Metoprolol Tartrate [Lopressor] 37.5 mg PO BID Simvastatin [Zocor] 10 mg PO BEDTIME 09/07/17 22:00 Albuterol/Ipratropium [DuoNeb 3.0-0.5 MG/3 ML] 3 ml INH QIDRT 09/07/17 Dinner Nothing per Oral Now Diet [DIET] 09/08/17 08:00 Ampicillin/Sulbactam Na [Unasyn] 1.5 gm Sodium Chloride 0.9% [Normal Saline] 50 ml IV Q6H 09/08/17 09:00 Enoxaparin [Lovenox] 120 mg SUBCUT Q12H Losartan [Cozaar] 100 mg PO DAILY Mometasone Furoate 200mcg [Asmanex HFA 200mcg] 0 gm INH BIDRT 09/08/17 10:00 Magnesium Sulfate/Water [Magnesium Sulfate 2 GM in Water 50 ML] 2 gm Premix Bag 1 bag IV Q6H 09/08/17 10:32 Ang Chest [CT] Stat 09/08/17 18:00 Pantoprazole [ProTONIX IV] 40 mg IVPUSH Q24H 09/09/17 05:00 CBC WITH AUTO DIFF [HEME] Timed COMPREHENSIVE METABOLIC PN,CMP [CHEM] Timed LIPASE [CHEM] Timed - Plan Plan:: ASSESSMENT AND PLAN PANCREATITIS/CHOLECYSTITIS-improvement in pain and lipase level overnight, she has been hemodynamically stable. White blood cell count remains mildly to moderately elevated. -IV fluids for hydration -nothing by mouth -pain medication and antiemetic therapy as needed -Unasyn 1.5 g IV every 6 hours -Surgical follow-up per Dr. Garibay ELEVATED [id number] of deep vein thrombosis and pulmonary embolism, no longer on long-term anticoagulation. Renal function has improved overnight with IV hydration -CT angiogram today -Lovenox 120 mg subcutaneous every 12 hours CHRONIC KIDNEY DISEASE STAGE III-renal function improved after hydration -Closely monitor urine output and renal function MAINTENANCE ISSUES -DVT prophylaxis; current therapy with Lovenox should provide adequate DVT prophylaxis -GI prophylaxis; Protonix 40 mg IV every 24 hours -Leo catheter; not indicated -Nutrition;Nothing by mouth -Nicotine dependence; not required CODE STATUS- FULL CODE ADMISSION STATUS-patient will be admitted to inpatient status, expect at least a 2 night hospital stay for evaluation and management of problems as outlined above. At the time of this admission I do not reasonably expected evaluation and management of this problem will require more than a 96 hour hospital stay. DISPOSITION-anticipate discharge to home after the hospital stay. 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
[2017-09-08] MEDS ORDERED: Iopamidol 755 Mg/ML 100 ML Bottle IV SCH (10:45)
[2017-09-08] MEDS ORDERED: Sodium Chloride 0.9% 100 ML IV SCH (10:45)
[2017-09-08] MEDS ORDERED: Pantoprazole 40 MG Vial IVPUSH SCH (18:00)
[2017-09-08] MEDS: Simvastatin 20 MG Tab PO SCH (20:51)
[2017-09-09] MEDS: Sodium Chloride 0.9% 1,000 ML IV SCH ×2 (00:45→09:01)
[2017-09-09] MEDS: Ampicillin/Sulbactam Na 1.5 GM in Sodium Chloride 0.9% 50 ML IV SCH ×4 (01:38→20:29)
[2017-09-09] MEDS: Mometasone Furoate HFA 200 mcg/Puff 13 GM Inhaler INH SCH ×2 (07:04→20:38)
[2017-09-09] MEDS: Albuterol/Ipratropium 3.0-0.5 MG/3 ML Neb Soln INH SCH ×4 (07:04→20:37)
[2017-09-09] MEDS: Losartan 50 MG Tab PO SCH (08:59)
[2017-09-09] MEDS ORDERED: Enoxaparin 40 MG/0.4 ML Syringe SUBCUT SCH (09:00)
[2017-09-09] MEDS: Metoprolol Tartrate 25 MG Tab PO SCH ×2 (09:00→20:37)
--- NOTE | 2017-09-09 09:26 | PCM.PN ---
- General Info Date of Service: 09/09/17 Functional Status: Reports: Pain Controlled - Review of Systems General: Denies: Fever Pulmonary: Reports: Shortness of Breath Gastrointestinal: Reports: Abdominal Pain Systems Review Comment:: No acute events overnight. Abdominal pain has improved since yesterday but has not resolved. Still reporting mild to moderate epigastric pain, especially with deep inspiration. She was started on supplemental oxygen overnight for mild hypoxia. Lipase level has normalized. Bilirubin is up slightly from yesterday. White blood cell count is mildly elevated. No fevers. MRCP did not show retained stone or dilation of the biliary tree. - Patient Data Vitals - Most Recent: Last Vital Signs Temp 37.3 C 09/09/17 04:00 Pulse 71 09/09/17 09:00 Resp 16 09/09/17 04:00 BP 156/65 H 09/09/17 09:00 Pulse Ox 93 L 09/09/17 04:00 Weight - Most Recent: 117.027 kg I&O - Last 24 Hours: Intake & Output 09/08/17 09/09/17 09/09/17 22:59 06:59 14:59 Intake Total 1570 1470 Output Total 900 550 Balance 670 920 Lab Results Last 24 Hours: Laboratory Results - last 24 hr 09/09/17 09/09/17 Range/Units 05:50 05:50 WBC 18.8 H (4.5-11.0) K/uL RBC 4.53 (3.30-5.50) M/uL Hgb 13.5 D (12.0-15.0) g/dL Hct 41.9 (36.0-48.0) % MCV 93 (80-98) fL MCH 30 (27-31) pg MCHC 32 (32-36) % Plt Count 157 (150-400) K/uL Neut % (Auto) 86 H (36-66) % Lymph % (Auto) 6 L (24-44) % [place] % (Auto) 8 H (2-6) % Eos % (Auto) 0 L (2-4) % Baso % (Auto) 0 (0-1) % Sodium 142 (140-148) mmol/L Potassium 3.8 (3.6-5.2) mmol/L Chloride 107 (100-108) mmol/L Carbon Dioxide 26 (21-32) mmol/L Anion Gap 8.8 (5.0-14.0) mmol/L BUN 15 (7-18) mg/dL Creatinine 1.1 H (0.6-1.0) mg/dL Est Cr Clr Drug Dosing 38.48 mL/min Estimated GFR (MDRD) 48 L (>60) Glucose 117 H (74-106) mg/dL Calcium 7.7 L (8.5-10.1) mg/dL Total Bilirubin 2.4 H D (0.2-1.0) mg/dL AST 98 H (15-37) U/L ALT 173 H (12-78) U/L Alkaline Phosphatase 114 (46-116) U/L Total Protein 6.1 L (6.4-8.2) g/dL Albumin 2.6 L (3.4-5.0) g/dL Globulin 3.5 (2.3-3.5) g/dL Albumin/Globulin Ratio 0.7 L (1.2-2.2) Lipase 272 (73-393) U/L Med Orders - Current: Current Medications Acetaminophen (Tylenol) 650 mg PO Q4H PRN PRN Reason: Pain (Mild 1-3)/fever Albuterol/Ipratropium (Duoneb 3.0-0.5 Mg/3 Ml) 3 ml INH QIDRT [facility] Last Admin: 09/09/17 07:04 Dose: 3 ml Albuterol/Ipratropium (Duoneb 3.0-0.5 Mg/3 Ml) 3 ml NEB QID PRN PRN Reason: Shortness Of Breath/wheezing Enoxaparin Sodium (Lovenox) 40 mg SUBCUT DAILY [facility] Last Admin: 09/09/17 09:11 Dose: 40 mg Hydromorphone HCl (Dilaudid Photo Studio Assistant 15 Mg In Ns 30 Ml) 0 mg IV ASDIRECTED PRN; Protocol PRN Reason: Pain Last Admin: 09/07/17 20:44 Dose: 15 mg Ampicillin Sodium/Sulbactam (Sodium 1.5 gm/ Sodium Chloride) 50 mls @ 100 mls/ hr IV Q6H [facility] Last Admin: 09/09/17 08:59 Dose: 100 mls/hr Losartan Potassium (Cozaar) 100 mg PO DAILY [facility] Last Admin: 09/09/17 08:59 Dose: 100 mg Metoprolol Tartrate (Lopressor) 37.5 mg PO BID [facility] Last Admin: 09/09/17 09:00 Dose: 37.5 mg Mometasone Furoate (Asmanex Hfa 200mcg) 0 gm INH BIDRT [facility] Last Admin: 09/09/17 07:04 Dose: 2 puff Naloxone HCl (Narcan) 0.4 mg IVPUSH Q2M PRN PRN Reason: Respiratory Distress Ondansetron HCl (Zofran) 4 mg IV Q4H PRN PRN Reason: Nausea/Vomiting Simvastatin (Zocor) 10 mg PO BEDTIME [facility] Last Admin: 09/08/17 20:51 Dose: 10 mg Sodium Chloride (Saline Flush) 10 ml FLUSH ASDIRECTED PRN PRN Reason: Keep Vein Open Discontinued Medications Enoxaparin Sodium (Lovenox) 120 mg SUBCUT Q12H [facility] Last Admin: 09/07/17 21:00 Dose: Not Given Enoxaparin Sodium (Lovenox) Confirm Administered Dose 120 mg .ROUTE .STK-MED ONE Stop: 09/07/17 20:38 Last Admin: 09/07/17 20:53 Dose: 120 mg Enoxaparin Sodium (Lovenox) 120 mg SUBCUT Q12H [facility] Last Admin: 09/08/17 20:52 Dose: 120 mg Hydromorphone HCl (Dilaudid) 1 mg IVPUSH Q1H ONE Stop: 09/07/17 13:29 Hydromorphone HCl (Dilaudid) 1 mg IM ONETIME ONE Stop: 09/07/17 13:42 Hydromorphone HCl (Dilaudid) 0.5 mg IVPUSH ONETIME ONE Stop: 09/07/17 14:22 Last Admin: 09/07/17 14:33 Dose: 0.5 mg Hydromorphone HCl (Dilaudid) Confirm Administered Dose 0.5 mg .ROUTE .STK-MED ONE Stop: 09/07/17 14:40 Last Admin: 09/07/17 15:06 Dose: Not Given Sodium Chloride (Normal Saline) 1,000 mls @ 999 mls/hr IV ASDIRECTED [facility] Last Admin: 09/07/17 14:33 Dose: 999 mls/hr Sodium Chloride (Normal Saline) 1,000 mls @ 999 mls/hr IV ASDIRECTED [facility] Last Admin: 09/07/17 15:38 Dose: 999 mls/hr Ampicillin Sodium/Sulbactam (Sodium 1.5 gm/ Sodium Chloride) 50 mls @ 100 mls/ hr IV Q6H [facility] Last Admin: 09/08/17 01:48 Dose: 100 mls/hr Sodium Chloride (Normal Saline) 1,000 mls @ 125 mls/hr IV ASDIRECTED [facility] Last Admin: 09/09/17 09:01 Dose: 125 mls/hr Magnesium Sulfate 2 gm/ Premix 50 mls @ 25 mls/hr IV Q6H [facility] Stop: 09/08/17 17:59 Last Admin: 09/08/17 15:54 Dose: 25 mls/hr Sodium Chloride (Normal Saline) 100 mls @ 3 mls/sec IV ASDIRECTED [facility] Stop: 09/08/17 12:00 Last Admin: 09/08/17 12:02 Dose: 3 mls/sec Iopamidol (Isovue-370 (76%)) 100 ml IV . DIRECTED [facility] Stop: 09/08/17 12:00 Last Admin: 09/08/17 12:02 Dose: 100 ml Mometasone Furoate (Asmanex Hfa 200mcg) 0 gm INH BID [facility] Last Admin: 09/07/17 20:57 Dose: 2 inhaler Pantoprazole Sodium (Protonix Iv) 40 mg IVPUSH Q24H [facility] Last Admin: 09/07/17 20:38 Dose: 40 mg Pantoprazole Sodium (Protonix Iv) 40 mg IVPUSH Q24H [facility] Last Admin: 09/08/17 18:09 Dose: 40 mg - Exam Quality Assessment: Supplemental Oxygen General: Alert, Oriented, Cooperative, No Acute Distress Neck: Supple Lungs: Clear to Auscultation, Normal Respiratory Effort, Decreased Breath Sounds (both bases) Cardiovascular: Regular Rate, Regular Rhythm GI/Abdominal Exam: Soft, No Distention, Tender (moderate upper abdominal pain with palpation ) Extremities: Pedal Edema (mild bilateral ). No: Increased Warmth Skin: Warm, Dry Psy/Mental Status: Alert, Normal Affect - Problem List Review Problem List Initiated/Reviewed/Updated: Yes - My Orders Last 24 Hours: My Active Orders 09/09/17 09:00 Enoxaparin [Lovenox] 40 mg SUBCUT DAILY 09/09/17 09:18 Cholangiopancreatography [MR] Routine 09/09/17 09:30 Sodium Chloride 0.9% [Normal Saline] 1,000 ml IV ASDIRECTED 09/10/17 05:00 CBC W/O DIFF,HEMOGRAM [HEME] Timed (1) COMPREHENSIVE METABOLIC PN,CMP [CHEM] Timed - Plan Plan:: ASSESSMENT AND PLAN ACUTE PANCREATITIS AND CHOLECYSTITIS WITH CHOLELITHIASIS - improvement in pain and lipase level overnight, she has been hemodynamically stable. White blood cell count remains mildly to moderately elevated and is slightly higher again today. Pancreatitis has resolved. Bilirubin slightly higher today but could be leg effect. Clinically doing well otherwise. -Saline lock IV -Clear liquids -pain medication and antiemetic therapy as needed - continue Amp/Sulb 1.5 g IV every 6 hours -Surgical follow-up per Dr. Garibay, anticipate outpatient cholecystectomy ELEVATED D-DIMER - history of deep vein thrombosis and pulmonary embolism, no longer on long-term anticoagulation. No evidence for PE. Likely related to acute infection. -Prophylactic dose enoxaparin CHRONIC KIDNEY DISEASE STAGE III - renal function improved after hydration. -Closely monitor urine output and renal function MAINTENANCE ISSUES -DVT prophylaxis; enoxaparin -GI prophylaxis; PPI -Leo catheter; not indicated -Nutrition; clear liquids DISPOSITION - anticipate discharge to home after the hospital stay. Darin Landry MD
[2017-09-09] MEDS ORDERED: Sodium Chloride 0.9% 1,000 ML IV SCH (09:30)
--- NOTE | 2017-09-09 10:34 | CONS ---
DATE OF SERVICE: 09/09/2017 REFERRING PHYSICIAN: CONSULTING PHYSICIAN: Saw Garibay MD REASON FOR CONSULTATION: Abdominal pain. HISTORY OF PRESENT ILLNESS: This is a pleasant 77-year-old female, whom I have been asked to see by the hospitalist service. The patient developed supraumbilical pain associated with nausea and vomiting. This pain occurred essentially supraumbilically. It is described as 3/10 and is constant. The patient did respond well to pain medications. The patient underwent an ultrasound which I did review which shows gallbladder wall thickening and cholecystitis. This is all modified due to the fact that the patient is currently on an anticoagulation with a history of DVT and pulmonary embolism. PAST MEDICAL HISTORY: History of myocardial infarction several years ago, has a pneumonia, gastritis, depression. PAST SURGICAL HISTORY: Inguinal hernia, colonoscopy, appendectomy, hysterectomy, knee replacement. SOCIAL HISTORY: She is not a smoker. FAMILY HISTORY: Noncontributory. REVIEW OF SYSTEMS: GENERAL: The patient is comfortable. HEENT: No symptoms. CARDIOVASCULAR: OR as above. RESPIRATORY: Pneumonia and asthma as above, however, stable. GI: No acholic stools. GENITOURINARY: No dysuria. NEUROLOGICAL: No symptoms. PSYCH: No symptoms. The remainder review of systems is reviewed and is negative. PHYSICAL EXAMINATION: VITAL SIGNS: Temperature 99.1, blood pressure 143/55, pulse 63, respirations 16, and 93% on 2 L. HEENT: Pupils are equal. NECK: Supple. LUNGS: Clear. CARDIOVASCULAR: Regular rhythm and rate. ABDOMEN: Mild pain with palpation. No rebound. No guarding. No tenderness. EXTREMITIES: Full range of motion. NEUROLOGICAL: Oriented x3. PSYCH: No gross depression. LABORATORY DATA: Laboratory results showed a white blood cell count of 14.3, bilirubin is now normal. AST and ALT have responded quite well. ASSESSMENT: Pancreatitis one of the etiologies could be due to choledocholithiasis. The patient's bilirubin is low and normal. PLAN: Plan will be for laparoscopic cholecystectomy once her pancreatitis has improved and the patient has improved and can be preoperative with respect to anticoagulation and other risk factors. We discussed risks, benefits, alternatives, and limitations of laparoscopic cholecystectomy including common bile duct injury, cystic duct leaks, requirement for open surgery and other risks not listed here. The patient understands these risks and wished to proceed. Saw Garibay MD /[id number]
--- NOTE | 2017-09-09 11:21 | MR ---
Cholangiopancreatography HISTORY: acute cholecystitis, assess for CBD stone Multiplanar MRCP sequences of the abdomen were obtained. Source and 3-D MIP images were reviewed. FINDINGS: No intrahepatic or extrahepatic biliary duct dilatation is identified. Common bile duct tap ers at the ampulla. No abnormal filling defect is identified. I see no evidence for retained common d uct stone. Cystic duct is not dilated. Small amount of pericholecystic fluid is noted. IMPRESSION: No biliary duct dilatation or retained common duct stone is identified. There appears to be a small amount of pericholecystic fluid.
[2017-09-09] MEDS: Acetaminophen 325 MG Tab PO PRN ×2 (15:27→20:39)
[2017-09-09] MEDS ORDERED: Pantoprazole 40 MG Delayed-Release Granules 1 Packet PO SCH (17:00)
[2017-09-09] MEDS: Simvastatin 20 MG Tab PO SCH (20:38)
[2017-09-09] MEDS: oxyCODONE 5 MG Tab PO PRN (22:59)
[2017-09-10] MEDS: Ampicillin/Sulbactam Na 1.5 GM in Sodium Chloride 0.9% 50 ML IV SCH ×4 (01:34→20:20)
[2017-09-10] MEDS: Albuterol/Ipratropium 3.0-0.5 MG/3 ML Neb Soln INH SCH ×4 (07:20→21:20)
[2017-09-10] MEDS: Mometasone Furoate HFA 200 mcg/Puff 13 GM Inhaler INH SCH ×2 (07:22→21:20)
[2017-09-10] MEDS ORDERED: Furosemide 40 MG Tab PO ONE (08:30)
[2017-09-10] MEDS: Losartan 50 MG Tab PO SCH (08:33)
[2017-09-10] MEDS: oxyCODONE 5 MG Tab PO PRN ×2 (08:33→21:24)
[2017-09-10] MEDS: Metoprolol Tartrate 25 MG Tab PO SCH ×2 (08:34→21:24)
[2017-09-10] MEDS ORDERED: Polyethylene Glycol 3350 Powder 17 GM Packet PO PRN (10:44)
--- NOTE | 2017-09-10 10:47 | PCM.PN ---
- General Info Date of Service: 09/10/17 Functional Status: Reports: Pain Controlled, Tolerating Diet - Review of Systems General: Denies: Fever Gastrointestinal: Reports: Abdominal Pain, Nausea Systems Review Comment:: No acute events overnight. Mild epigastric pain and mild nausea this morning but in general she's feeling better. She did not have fevers overnight. White blood cell count is trending down. She did require some supplemental oxygen overnight but is off oxygen this morning. Labs look better other than bilirubin which is up again today. He did discuss the case with the interventional radiology technologist retail field supervisor at [employer]. The plan is for monitoring overnight, repeat labs in the morning and further decisions after repeat testing. She may need endoscopic ultrasound and or ERCP. - Patient Data Vitals - Most Recent: Last Vital Signs Temp 36.7 C 09/10/17 08:00 Pulse 80 09/10/17 10:44 Resp 20 09/10/17 08:00 BP 189/96 H 09/10/17 08:34 Pulse Ox 93 L 09/10/17 08:00 Weight - Most Recent: 117.027 kg I&O - Last 24 Hours: Intake & Output 09/09/17 09/10/17 09/10/17 22:59 06:59 14:59 Intake Total 100 Balance 100 Lab Results Last 24 Hours: Laboratory Results - last 24 hr 09/10/17 09/10/17 09/10/17 Range/Units 04:50 04:50 08:05 WBC 12.5 H (4.5-11.0) K/uL RBC 4.43 (3.30-5.50) M/uL Hgb 13.6 (12.0-15.0) g/dL Hct 39.8 (36.0-48.0) % MCV 90 (80-98) fL MCH 31 (27-31) pg MCHC 34 (32-36) % Plt Count 133 L (150-400) K/uL Sodium 139 L (140-148) mmol/L Potassium 4.4 (3.6-5.2) mmol/L Chloride 105 (100-108) mmol/L Carbon Dioxide 24 (21-32) mmol/L Anion Gap 14.4 H (5.0-14.0) mmol/L BUN 14 (7-18) mg/dL Creatinine 0.9 (0.6-1.0) mg/dL Est Cr Clr Drug Dosing 47.03 mL/min Estimated GFR (MDRD) > 60 (>60) Glucose 112 H (74-106) mg/dL Calcium 8.1 L (8.5-10.1) mg/dL Total Bilirubin 6.5 H D (0.2-1.0) mg/dL AST 98 H (15-37) U/L ALT 139 H (12-78) U/L Alkaline Phosphatase 122 H (46-116) U/L Total Protein 6.4 (6.4-8.2) g/dL Albumin 2.6 L (3.4-5.0) g/dL Globulin 3.8 H (2.3-3.5) g/dL Albumin/Globulin Ratio 0.7 L (1.2-2.2) Amylase 49 D (25-115) U/L Lipase 75 (73-393) U/L Med Orders - Current: Current Medications Acetaminophen (Tylenol) 650 mg PO Q4H PRN PRN Reason: Pain (Mild 1-3)/fever Last Admin: 09/09/17 20:39 Dose: 650 mg Albuterol/Ipratropium (Duoneb 3.0-0.5 Mg/3 Ml) 3 ml INH QIDRT [facility] Last Admin: 09/10/17 10:36 Dose: 3 ml Albuterol/Ipratropium (Duoneb 3.0-0.5 Mg/3 Ml) 3 ml NEB QID PRN PRN Reason: Shortness Of Breath/wheezing Ampicillin Sodium/Sulbactam (Sodium 1.5 gm/ Sodium Chloride) 50 mls @ 100 mls/ hr IV Q6H [facility] Last Admin: 09/10/17 08:33 Dose: 100 mls/hr Losartan Potassium (Cozaar) 100 mg PO DAILY [facility] Last Admin: 09/10/17 08:33 Dose: 100 mg Metoprolol Tartrate (Lopressor) 37.5 mg PO BID [facility] Last Admin: 09/10/17 08:34 Dose: 37.5 mg Mometasone Furoate (Asmanex Hfa 200mcg) 0 gm INH BIDRT [facility] Last Admin: 09/10/17 07:22 Dose: 2 puff Ondansetron HCl (Zofran) 4 mg IV Q4H PRN PRN Reason: Nausea/Vomiting Last Admin: 09/10/17 08:45 Dose: 4 mg Oxycodone HCl (Oxycodone) 5 mg PO Q4H PRN PRN Reason: Pain Last Admin: 09/10/17 08:33 Dose: 5 mg Pantoprazole Sodium (Protonix Granules) 40 mg PO QPM [facility] Last Admin: 09/09/17 18:56 Dose: 40 mg Polyethylene Glycol (Miralax) 17 gm PO DAILY PRN PRN Reason: Constipation Senna/Docusate Sodium (Senna Plus) 1 tab PO BID [facility] Simvastatin (Zocor) 10 mg PO BEDTIME [facility] Last Admin: 09/09/17 20:38 Dose: 10 mg Sodium Chloride (Saline Flush) 10 ml FLUSH ASDIRECTED PRN PRN Reason: Keep Vein Open Discontinued Medications Enoxaparin Sodium (Lovenox) 120 mg SUBCUT Q12H [facility] Last Admin: 09/07/17 21:00 Dose: Not Given Enoxaparin Sodium (Lovenox) Confirm Administered Dose 120 mg .ROUTE .STK-MED ONE Stop: 09/07/17 20:38 Last Admin: 09/07/17 20:53 Dose: 120 mg Enoxaparin Sodium (Lovenox) 120 mg SUBCUT Q12H [facility] Last Admin: 09/08/17 20:52 Dose: 120 mg Enoxaparin Sodium (Lovenox) 40 mg SUBCUT DAILY [facility] Last Admin: 09/09/17 09:11 Dose: 40 mg Furosemide (Lasix) 40 mg PO ONETIME ONE Stop: 09/10/17 08:31 Last Admin: 09/10/17 09:49 Dose: 40 mg Hydromorphone HCl (Dilaudid) 1 mg IVPUSH Q1H ONE Stop: 09/07/17 13:29 Hydromorphone HCl (Dilaudid) 1 mg IM ONETIME ONE Stop: 09/07/17 13:42 Hydromorphone HCl (Dilaudid) 0.5 mg IVPUSH ONETIME ONE Stop: 09/07/17 14:22 Last Admin: 09/07/17 14:33 Dose: 0.5 mg Hydromorphone HCl (Dilaudid) Confirm Administered Dose 0.5 mg .ROUTE .STK-MED ONE Stop: 09/07/17 14:40 Last Admin: 09/07/17 15:06 Dose: Not Given Hydromorphone HCl (Dilaudid Service Team Leader 15 Mg In Ns 30 Ml) 0 mg IV ASDIRECTED PRN; Protocol PRN Reason: Pain Last Admin: 09/07/17 20:44 Dose: 15 mg Sodium Chloride (Normal Saline) 1,000 mls @ 999 mls/hr IV ASDIRECTED [facility] Last Admin: 09/07/17 14:33 Dose: 999 mls/hr Sodium Chloride (Normal Saline) 1,000 mls @ 999 mls/hr IV ASDIRECTED [facility] Last Admin: 09/07/17 15:38 Dose: 999 mls/hr Ampicillin Sodium/Sulbactam (Sodium 1.5 gm/ Sodium Chloride) 50 mls @ 100 mls/ hr IV Q6H [facility] Last Admin: 09/08/17 01:48 Dose: 100 mls/hr Sodium Chloride (Normal Saline) 1,000 mls @ 125 mls/hr IV ASDIRECTED [facility] Last Admin: 09/09/17 09:01 Dose: 125 mls/hr Magnesium Sulfate 2 gm/ Premix 50 mls @ 25 mls/hr IV Q6H [facility] Stop: 09/08/17 17:59 Last Admin: 09/08/17 15:54 Dose: 25 mls/hr Sodium Chloride (Normal Saline) 100 mls @ 3 mls/sec IV ASDIRECTED [facility] Stop: 09/08/17 12:00 Last Admin: 09/08/17 12:02 Dose: 3 mls/sec Sodium Chloride (Normal Saline) 1,000 mls @ 75 mls/hr IV ASDIRECTED [facility] Iopamidol (Isovue-370 (76%)) 100 ml IV . DIRECTED [facility] Stop: 09/08/17 12:00 Last Admin: 09/08/17 12:02 Dose: 100 ml Mometasone Furoate (Asmanex Hfa 200mcg) 0 gm INH BID [facility] Last Admin: 09/07/17 20:57 Dose: 2 inhaler Naloxone HCl (Narcan) 0.4 mg IVPUSH Q2M PRN PRN Reason: Respiratory Distress Pantoprazole Sodium (Protonix Iv) 40 mg IVPUSH Q24H [facility] Last Admin: 09/07/17 20:38 Dose: 40 mg Pantoprazole Sodium (Protonix Iv) 40 mg IVPUSH Q24H [facility] Last Admin: 09/08/17 18:09 Dose: 40 mg - Exam Quality Assessment: No: Supplemental Oxygen General: Alert, Oriented, Cooperative, No Acute Distress Neck: Supple Lungs: Normal Respiratory Effort Cardiovascular: Regular Rate, Regular Rhythm GI/Abdominal Exam: Soft, No Distention Extremities: Pedal Edema Psy/Mental Status: Alert, Normal Affect - Problem List Review Problem List Initiated/Reviewed/Updated: Yes - My Orders Last 24 Hours: My Active Orders 09/09/17 13:00 PT Evaluation and Treatment [CONS] Routine 09/09/17 13:01 Convert IV to Saline Lock [OM.PC] Routine 09/09/17 17:00 Pantoprazole [ProTONIX Granules] 40 mg PO QPM 09/09/17 20:26 oxyCODONE 5 mg PO Q4H PRN 09/10/17 10:44 Polyethylene Glycol 3350 [MiraLAX] 17 gm PO DAILY PRN 09/10/17 10:45 Docusate Sodium/Sennosides [Senna Plus] 1 tab PO BID 09/10/17 Breakfast Regular Diet [DIET] 09/11/17 05:00 BILIRUBIN DIRECT [CHEM] Timed CBC W/O DIFF,HEMOGRAM [HEME] Timed (1) COMPREHENSIVE METABOLIC PN,CMP [CHEM] Timed - Plan Plan:: ASSESSMENT AND PLAN ACUTE PANCREATITIS AND CHOLECYSTITIS WITH CHOLELITHIASIS - clinically doing better and labs have improved other than the bilirubin which is now greater than 6. Mild nausea and mild pain but both have been improving throughout the hospital stay. Case discussed with gastroenterology, plan to repeat labs in the morning and consider outpatient management with cholecystectomy versus transfer for advanced imaging/procedures if labs are worse. -Saline lock IV -Regular diet -pain medication and antiemetic therapy as needed -continue Amp/Sulb 1.5 g IV every 6 hours -Repeat labs in the morning ELEVATED D-DIMER - history of deep vein thrombosis and pulmonary embolism, no longer on long-term anticoagulation. No evidence for PE. Likely related to acute infection. -Prophylactic dose enoxaparin CHRONIC KIDNEY DISEASE STAGE III - renal function improved after hydration and has remained stable. -Closely monitor urine output and renal function MAINTENANCE ISSUES -DVT prophylaxis; enoxaparin -GI prophylaxis; H2 marta -Leo catheter; not indicated -Nutrition; clear liquids DISPOSITION - anticipate discharge to home after the hospital stay. Darin Landry MD
[2017-09-10] MEDS ORDERED: Acetaminophen 500 MG Tab PO SCH (21:00)
[2017-09-10] MEDS ORDERED: diphenhydrAMINE 25 MG Cap PO SCH (21:00)
[2017-09-10] MEDS: Simvastatin 20 MG Tab PO SCH (21:25)
[2017-09-11] MEDS: Ampicillin/Sulbactam Na 1.5 GM in Sodium Chloride 0.9% 50 ML IV SCH ×2 (02:35→08:15)
[2017-09-11] MEDS: Mometasone Furoate HFA 200 mcg/Puff 13 GM Inhaler INH SCH (07:05)
[2017-09-11] MEDS: Albuterol/Ipratropium 3.0-0.5 MG/3 ML Neb Soln INH SCH (07:05)
[2017-09-11] MEDS: Losartan 50 MG Tab PO SCH (08:02)
[2017-09-11] MEDS: Metoprolol Tartrate 25 MG Tab PO SCH (08:08)
[2017-09-11 08:15] VITALS: BP 201/78
[2017-09-11] MEDS: Acetaminophen 325 MG Tab PO PRN (08:23)
[2017-09-11] MEDS ORDERED: Potassium Chloride 20 MEQ Tab.ER PO ONE (09:00)
--- NOTE | 2017-09-11 09:11 | PCM.DCSUM1 ---
Discharge Summary - Hospital Course Brief History: 77-year-old female with history of stage III chronic kidney disease and remote myocardial infarction who presented with acute abdominal painand nausea. She was admitted for management of presumed gallstone pancreatitis and cholecystitis with cholelithiasis. - Discharge Data Discharge Date: 09/11/17 Discharge Disposition: Home, Self-Care 01 Condition: Fair - Discharge Diagnosis/Problem(s) (1) Acute cholecystitis due to biliary calculus SNOMED Code(s): 44631042764754 ICD Code: K80.00 - CALCULUS OF GALLBLADDER W ACUTE CHOLECYST W/O OBSTRUCTION Status: Acute (2) Acute gallstone pancreatitis SNOMED Code(s): 607641140 ICD Code: K85.10 - BILIARY ACUTE PANCREATITIS WITHOUT NECROSIS OR INFECTION Status: Acute (3) CKD (chronic kidney disease) stage 3, GFR 30-59 ml/min SNOMED Code(s): 080990772 ICD Code: N18.3 - CHRONIC KIDNEY DISEASE, STAGE 3 (MODERATE) Status: Chronic - Patient Summary/Data Consults: Consultations 09/07/17 18:47 Consult to Physician [CONS] Routine Consulting Provider: aSw Garibay Call Completed to Consulting Physician: Yes Reason for Consult: Cholecystitis/pancreatitis 09/09/17 13:00 PT Evaluation and Treatment [CONS] Routine Please Evaluate and Treat. PT Reason for Consult: Strengthening This query below is only for informational purposes and is not editable. Admission Diagnosis/Problem: Pancreatitis Hospital Course: Tori presented to the emergency room with acute onset of abdominal pain with nausea and vomiting. Laboratory studies in the emergency room revealed significant elevation of the lipase at more than 11,000 as well as elevations of the bilirubin, AST and ALTs. The d-dimer was also elevated at 1400. An ultrasound of the gallbladder was obtained and this revealed a thickened gallbladder wall as well as stones in the gallbladder. This raised concern for acute cholecystitis and possible gallstone pancreatitis. With the elevated d- dimer and a history of pulmonary embolism a CT scan was entertained but because of her suboptimal kidney function this was deferred. The patient was admitted to the hospital and started on IV antibiotics, IV fluids and pain control. The morning after admission she had shown some clinical improvement. Her AST and ALTs had decreased and her pain had improved. Her kidney function had improved to the point that it was safe to perform the CT pulmonary angiogram. Her lipase was also noted to be trending down the day after admission. The afternoon after admission the CT pulmonary angiogram was obtained and did not show any evidence for pulmonary embolism. Antibiotics, IV fluids and pain control were continued through the second night. On the second day after admission the patient had a continued to trend towards improvement in her laboratory studies other than bilirubin which was up slightly at 2.3. She had some persistent pain and mild nausea but in general was improving. we did complete an MRCP which did not show evidence for dilation of the biliary tree or evidence for a retained stone. The third hospital night was relatively uneventful and the third full day after admission the patient had further improvement in her pain but not complete resolution. Unfortunately her bilirubin had risen to 6. Otherwise clinically she was doing well and had not been having fevers and was tolerating clear liquids. I did discuss the case with the on-call director medical economics at [facility] in [place]. He felt that given her clinical improvement a retained obstructing stone was unlikely. he felt that watchful waiting was acceptable given her good clinical status recommended repeat labs the next morning and deciding on further intervention from there. The next morning she did have improvement in her bilirubin with a level down to 5. Her pain has not resolved but has improved significantly. She has been tolerating a soft regular diet. At this point we discussed timing of gallbladder removal. She would like to go home for a couple of days and let things settle down further before having her cholecystectomy. She has been stable and tolerating her diet and labs are trending in the right direction. She will be discharged home. Prescriptions at the time of discharge include pain medications, antibiotics until surgery and ondansetron. She will follow-up in 2 days for cholecystectomy with Dr. Garibay. - Patient Instructions Diet: Regular Diet as Tolerated Diet, Other: soft, bland and low-fat foods until after surgery Activity: As Tolerated Driving: Do Not Drive (if you are taking pain pills) Showering/Bathing: May Shower Notify Provider of: Fever, Increased Pain, Nausea and/or Vomiting Other/Special Instructions: 1. You well were in the hospital for management of acute cholecystitis and acute pancreatitis caused by a gallstone that temporarily blocked the drainage of secretions from the liver and pancreas. The stone appears to have passed but with multiple stones remaining in the gallbladder we do recommend that the gallbladder be removed in the near future. The plan is for surgical intervention on Saturday, 2 days from now. 2. Your urine sample at the time of admission was suggestive of infection. I do recommend 3 additional doses of antibiotic. You should take Augmentin 1 tablet twice daily with food. Your first dose is due tonight and her last dose will be tomorrow night. This antibiotic should also cover any potential infection caused by the sick gallbladder. 3. Continue your other medications as previously prescribed. 4. You will receive a phone call tomorrow afternoon between 1 and 4 PM. At the time of the phone call you will receive a time to arrive to get ready for surgery. You should not have anything to eat or drink after midnight on night with surgery planned for Saturday. 5. Please seek medical attention if you develop fever greater than 101, have severe abdominal pain, persistent vomiting or severe diarrhea. - Discharge Plan Prescriptions/Med Rec: Amoxicillin/Clavulanate K [Augmentin 875-125 MG] 1 tab PO BID #3 tablet Ondansetron [Ondansetron ODT] 4 mg PO Q6H PRN #10 tab.rapdis PRN Reason: Nausea oxyCODONE 5 mg PO Q4H PRN #15 tablet PRN Reason: Pain Home Medications: Home Meds Losartan [Cozaar] 100 mg PO DAILY 06/07/16 [History] Metoprolol Tartrate 37.5 mg PO BID 06/07/16 [History] Albuterol/Ipratropium [Combivent Respimat] 1 puff INH QID 09/07/17 [History] Furosemide 1 tab PO DAILY 09/07/17 [History] Multivitamin [Daily Derrick] 1 tab PO DAILY 09/07/17 [History] Simvastatin [Zocor] 1 tab PO BEDTIME 09/07/17 [History] Fluticasone Propionate [Flovent HFA 110 MCG] 2 inhalation IH BID 09/08/17 [ History] Amoxicillin/Clavulanate K [Augmentin 875-125 MG] 1 tab PO BID #3 tablet [Rx] Ondansetron [Ondansetron ODT] 4 mg PO Q6H PRN #10 tab.rapdis 09/11/17 [Rx] oxyCODONE 5 mg PO Q4H PRN #15 tablet 09/11/17 [Rx] Patient Handouts: Amoxicillin; Clavulanic Acid tablets, Cholecystitis Referrals: PCP,None [Primary Care Provider] - (follow-up with your primary care next week - post hospital recheck) - Discharge Summary/Plan Comment DC Time >30 min.: Yes (40 - coordinating upcoming surgery) - Patient Data Vitals - Most Recent: Last Vital Signs Temp 37.2 C 09/11/17 02:39 Pulse 81 09/11/17 08:08 Resp 18 09/11/17 02:39 BP 201/78 H 09/11/17 08:08 Pulse Ox 93 L 09/11/17 06:00 Weight - Most Recent: 117.027 kg I&O - Last 24 hours: Intake & Output 09/10/17 09/11/17 09/11/17 22:59 06:59 14:59 Intake Total 600 100 Output Total 1 Balance 599 100 Lab Results - Last 24 hrs: Laboratory Results - last 24 hr 09/11/17 09/11/17 Range/Units 04:54 04:54 WBC 11.5 H (4.5-11.0) K/uL RBC 4.51 (3.30-5.50) M/uL Hgb 13.5 (12.0-15.0) g/dL Hct 40.9 (36.0-48.0) % MCV 91 (80-98) fL MCH 30 (27-31) pg MCHC 33 (32-36) % Plt Count 164 (150-400) K/uL Sodium 137 L (140-148) mmol/L Potassium 3.2 L (3.6-5.2) mmol/L Chloride 100 (100-108) mmol/L Carbon Dioxide 27 (21-32) mmol/L Anion Gap 13.2 (5.0-14.0) mmol/L BUN 15 (7-18) mg/dL Creatinine 1.0 (0.6-1.0) mg/dL Est Cr Clr Drug Dosing 42.32 mL/min Estimated GFR (MDRD) 54 L (>60) Glucose 108 H (74-106) mg/dL Calcium 8.3 L (8.5-10.1) mg/dL Total Bilirubin 5.2 H (0.2-1.0) mg/dL Direct Bilirubin 3.86 H (0.0-0.2) mg/dL AST 87 H (15-37) U/L ALT 141 H (12-78) U/L Alkaline Phosphatase 128 H (46-116) U/L Total Protein 6.6 (6.4-8.2) g/dL Albumin 2.6 L (3.4-5.0) g/dL Globulin 4.0 H (2.3-3.5) g/dL Albumin/Globulin Ratio 0.7 L (1.2-2.2) Med Orders - Current: Current Medications Acetaminophen (Tylenol) 650 mg PO Q4H PRN PRN Reason: Pain (Mild 1-3)/fever Last Admin: 09/11/17 08:23 Dose: 650 mg Acetaminophen (Tylenol Extra Strength) 500 mg PO BEDTIME PENDING SALE TO [facility] Last Admin: 09/10/17 21:25 Dose: 500 mg Albuterol/Ipratropium (Duoneb 3.0-0.5 Mg/3 Ml) 3 ml INH QIDRT PENDING SALE TO [facility] Last Admin: 09/11/17 07:05 Dose: 3 ml Albuterol/Ipratropium (Duoneb 3.0-0.5 Mg/3 Ml) 3 ml NEB QID PRN PRN Reason: Shortness Of Breath/wheezing Diphenhydramine HCl (Benadryl) 25 mg PO BEDTIME PENDING SALE TO [facility] Last Admin: 09/10/17 21:24 Dose: 25 mg Ampicillin Sodium/Sulbactam (Sodium 1.5 gm/ Sodium Chloride) 50 mls @ 100 mls/ hr IV Q6H PENDING SALE TO [facility] Last Admin: 09/11/17 08:15 Dose: 100 mls/hr Losartan Potassium (Cozaar) 100 mg PO DAILY PENDING SALE TO [facility] Last Admin: 09/11/17 08:02 Dose: 100 mg Metoprolol Tartrate (Lopressor) 37.5 mg PO BID PENDING SALE TO [facility] Last Admin: 09/11/17 08:08 Dose: 37.5 mg Mometasone Furoate (Asmanex Hfa 200mcg) 0 gm INH BIDRT PENDING SALE TO [facility] Last Admin: 09/11/17 07:05 Dose: 2 puff Ondansetron HCl (Zofran) 4 mg IV Q4H PRN PRN Reason: Nausea/Vomiting Last Admin: 09/10/17 08:45 Dose: 4 mg Oxycodone HCl (Oxycodone) 5 mg PO Q4H PRN PRN Reason: Pain Last Admin: 09/10/17 21:24 Dose: 5 mg Polyethylene Glycol (Miralax) 17 gm PO DAILY PRN PRN Reason: Constipation Ranitidine HCl (Zantac) 150 mg PO BEDTIME PENDING SALE TO [facility] Last Admin: 09/10/17 21:24 Dose: 150 mg Senna/Docusate Sodium (Senna Plus) 1 tab PO BID PENDING SALE TO [facility] Last Admin: 09/11/17 08:09 Dose: 1 tab Simvastatin (Zocor) 10 mg PO BEDTIME PENDING SALE TO [facility] Last Admin: 09/10/17 21:25 Dose: 10 mg Sodium Chloride (Saline Flush) 10 ml FLUSH ASDIRECTED PRN PRN Reason: Keep Vein Open Discontinued Medications Enoxaparin Sodium (Lovenox) 120 mg SUBCUT Q12H PENDING SALE TO [facility] Last Admin: 09/07/17 21:00 Dose: Not Given Enoxaparin Sodium (Lovenox) Confirm Administered Dose 120 mg .ROUTE .STK-MED ONE Stop: 09/07/17 20:38 Last Admin: 09/07/17 20:53 Dose: 120 mg Enoxaparin Sodium (Lovenox) 120 mg SUBCUT Q12H PENDING SALE TO [facility] Last Admin: 09/08/17 20:52 Dose: 120 mg Enoxaparin Sodium (Lovenox) 40 mg SUBCUT DAILY PENDING SALE TO [facility] Last Admin: 09/09/17 09:11 Dose: 40 mg Furosemide (Lasix) 40 mg PO ONETIME ONE Stop: 09/10/17 08:31 Last Admin: 09/10/17 09:49 Dose: 40 mg Hydromorphone HCl (Dilaudid) 1 mg IVPUSH Q1H ONE Stop: 09/07/17 13:29 Hydromorphone HCl (Dilaudid) 1 mg IM ONETIME ONE Stop: 09/07/17 13:42 Hydromorphone HCl (Dilaudid) 0.5 mg IVPUSH ONETIME ONE Stop: 09/07/17 14:22 Last Admin: 09/07/17 14:33 Dose: 0.5 mg Hydromorphone HCl (Dilaudid) Confirm Administered Dose 0.5 mg .ROUTE .STK-MED ONE Stop: 09/07/17 14:40 Last Admin: 09/07/17 15:06 Dose: Not Given Hydromorphone HCl (Dilaudid Stemmer Machine 15 Mg In Ns 30 Ml) 0 mg IV ASDIRECTED PRN; Protocol PRN Reason: Pain Last Admin: 09/07/17 20:44 Dose: 15 mg Sodium Chloride (Normal Saline) 1,000 mls @ 999 mls/hr IV ASDIRECTED PENDING SALE TO [facility] Last Admin: 09/07/17 14:33 Dose: 999 mls/hr Sodium Chloride (Normal Saline) 1,000 mls @ 999 mls/hr IV ASDIRECTED PENDING SALE TO [facility] Last Admin: 09/07/17 15:38 Dose: 999 mls/hr Ampicillin Sodium/Sulbactam (Sodium 1.5 gm/ Sodium Chloride) 50 mls @ 100 mls/ hr IV Q6H PENDING SALE TO [facility] Last Admin: 09/08/17 01:48 Dose: 100 mls/hr Sodium Chloride (Normal Saline) 1,000 mls @ 125 mls/hr IV ASDIRECTED PENDING SALE TO [facility] Last Admin: 09/09/17 09:01 Dose: 125 mls/hr Magnesium Sulfate 2 gm/ Premix 50 mls @ 25 mls/hr IV Q6H PENDING SALE TO [facility] Stop: 09/08/17 17:59 Last Admin: 09/08/17 15:54 Dose: 25 mls/hr Sodium Chloride (Normal Saline) 100 mls @ 3 mls/sec IV ASDIRECTED PENDING SALE TO [facility] Stop: 09/08/17 12:00 Last Admin: 09/08/17 12:02 Dose: 3 mls/sec Sodium Chloride (Normal Saline) 1,000 mls @ 75 mls/hr IV ASDIRECTED PENDING SALE TO [facility] Iopamidol (Isovue-370 (76%)) 100 ml IV . DIRECTED PENDING SALE TO [facility] Stop: 09/08/17 12:00 Last Admin: 09/08/17 12:02 Dose: 100 ml Mometasone Furoate (Asmanex Hfa 200mcg) 0 gm INH BID PENDING SALE TO [facility] Last Admin: 09/07/17 20:57 Dose: 2 inhaler Naloxone HCl (Narcan) 0.4 mg IVPUSH Q2M PRN PRN Reason: Respiratory Distress Pantoprazole Sodium (Protonix Iv) 40 mg IVPUSH Q24H PENDING SALE TO [facility] Last Admin: 09/07/17 20:38 Dose: 40 mg Pantoprazole Sodium (Protonix Iv) 40 mg IVPUSH Q24H PENDING SALE TO [facility] Last Admin: 09/08/17 18:09 Dose: 40 mg Pantoprazole Sodium (Protonix Granules) 40 mg PO QPM [place] Last Admin: 09/09/17 18:56 Dose: 40 mg Potassium Chloride (Klor-Con M20) 40 meq PO ONETIME ONE Stop: 09/11/17 09:01 Last Admin: 09/11/17 09:05 Dose: 40 meq - Exam Quality Assessment: Reports: Supplemental Oxygen General: Reports: Alert, Oriented, Cooperative, No Acute Distress Neck: Reports: Supple Lungs: Reports: Normal Respiratory Effort Cardiovascular: Reports: Regular Rate, Regular Rhythm GI/Abdominal Exam: Soft, No Distention, Tender Extremities: Pedal Edema (mild bilateral ankle edema) Psy/Mental Status: Reports: Alert, Normal Affect *Q Meaningful Use (DIS) - VTE *Q VTE Pharmacological Contraindications *Q: High INR Value
== END 2017-09-11 10:19 | disposition home or self-care (01) | DRG 444 ==
LOC: JP.ED 12:55 → JP.ICU 17:36
PROVIDERS: ADMIT Hospitalist; ATTEND Internal Medicine
DX: K80.10 Calculus of gallbladder with chronic cholecystitis without obstruction (principal); K85.90 Acute pancreatitis without necrosis or infection, unspecified; K80.00 Calculus of gallbladder with acute cholecystitis without obstruction; K85.10 Biliary acute pancreatitis without necrosis or infection; I12.9 Hypertensive chronic kidney disease with stage 1 through stage 4 chronic kidney disease, or unspecified chronic kidney disease; N18.3 Chronic kidney disease, stage 3 (moderate); I44.7 Left bundle-branch block, unspecified; I25.2 Old myocardial infarction; R79.1 Abnormal coagulation profile; R10.13 Epigastric pain; R11.2 Nausea with vomiting, unspecified; Z86.718 Personal history of other venous thrombosis and embolism; Z86.711 Personal history of pulmonary embolism; F32.9 Major depressive disorder, single episode, unspecified; M19.90 Unspecified osteoarthritis, unspecified site; Z87.01 Personal history of pneumonia (recurrent); H54.7 Unspecified visual loss; H91.90 Unspecified hearing loss, unspecified ear; R82.90 Unspecified abnormal findings in urine
CPT/HCPCS: 36415; 76705; 80053; 81001; 82150; 82550; 83690; 84484; 85025; 85379; 86140; 96361; 96374; 96376; 99285; J1170; J7040 ×2; 71275; 74181; 74181-26; 82248; 83735; 85027; 94640; 94640-76; A9270-GY; C9113; J0287; J1650; J2405; J3475; J7030; J7050; J7620; Q9967

== ENCOUNTER 2017-09-13 05:59 | Day surgery (SDC) | payer MEDICARE, BC ==
[2017-09-13] MEDS ORDERED: Lidocaine 1% with EPINEPHrine 1:100,000 50 ML MDV ONE (06:39)
[2017-09-13] MEDS ORDERED: Bupivacaine 0.5% 50 ML MDV ONE (06:39)
[2017-09-13] MEDS ORDERED: metroNIDAZOLE/Normal Saline 500 MG in Premix Bag 1 BAG IV ONE (07:15)
[2017-09-13] MEDS ORDERED: ceFAZolin 2 GM in Premix Bag 1 BAG IV ONE (07:15)
[2017-09-13] MEDS ORDERED: fentaNYL 250 MCG/5 ML SDV ONE (07:15)
[2017-09-13] MEDS ORDERED: Albuterol/Ipratropium 3.0-0.5 MG/3 ML Neb Soln NEB ONE (07:15)
[2017-09-13] MEDS ORDERED: Propofol 200 MG/20 ML SDV ONE (07:16)
[2017-09-13] MEDS ORDERED: Rocuronium 50 MG/5 ML Vial ONE (07:16)
[2017-09-13] MEDS ORDERED: Neostigmine Methylsulfate 1 MG/ML 5 ML Syringe ONE (07:16)
[2017-09-13] MEDS ORDERED: Glycopyrrolate 0.2 MG/ML 5 ML MDV ONE (07:16)
[2017-09-13] MEDS ORDERED: Dexamethasone 4 MG/ML SDV ONE (07:16)
[2017-09-13] MEDS ORDERED: Ondansetron 4 MG/2 ML SDV ONE (07:16)
[2017-09-13] MEDS ORDERED: Succinylcholine 200 MG/10 ML MDV ONE (07:16)
[2017-09-13] MEDS: Sodium Chloride 0.9% 1,000 ML IV SCH ×2 (07:35→10:46)
[2017-09-13] MEDS ORDERED: Ketorolac 60 MG/2 ML SDV ONE (09:11)
[2017-09-13] MEDS ORDERED: Lactated Ringers 1,000 ML ONE (09:23)
[2017-09-13] MEDS ORDERED: Benzocaine/Cetylpyridinium/Menthol Lozenge MUCMEM PRN (09:27)
[2017-09-13] MEDS ORDERED: Acetaminophen/oxyCODONE 325-5 MG Tab PO PRN (09:27)
[2017-09-13] MEDS ORDERED: Docusate Sodium 100 MG Cap PO PRN (09:27)
[2017-09-13] MEDS ORDERED: Zolpidem 5 MG Tab PO PRN (09:27)
[2017-09-13] MEDS ORDERED: hydrOXYzine HCl 100 MG/2 ML SDV IM PRN (09:27)
[2017-09-13] MEDS ORDERED: Bisacodyl 5 MG Tab PO PRN (09:27)
[2017-09-13] MEDS ORDERED: diphenhydrAMINE 50 MG/ML SDV IVPUSH PRN (09:27)
[2017-09-13] MEDS ORDERED: fentaNYL 100 MCG/2 ML SDV IVPUSH ONE (10:07)
[2017-09-13] MEDS ORDERED: hydrOXYzine HCl 100 MG/2 ML SDV IM ONE (10:07)
--- NOTE | 2017-09-13 13:08 | OR ---
DATE OF PROCEDURE: 09/13/2017 PROCEDURE: Laparoscopic cholecystectomy. COMPLICATIONS: None. OPERATIONS OFFICER AFLOAT: None. ANESTHESIA: General/local. FINDINGS: 1. Significant and extensive edema associated with the gallbladder. 2. Omentum wrapped around the gallbladder. PROCEDURE IN DETAIL: The patient was placed in the supine position. A supraumbilical incision was made. A Veress needle was used to enter the abdomen without abnormality, and a drop test was performed without abnormality. The abdomen was subsequently insufflated. This was followed by an Optiview trocar, which was used to enter the abdomen without abnormality. An additional 10 and two 5-mm ports were entered under direct visualization. Later during the procedure, an additional 5-mm port would be placed, due to the patient's body habitus and dense adhesions associated with the gallbladder itself. The omentum was noted to be wrapped around the gallbladder itself, so this was gently and bluntly dissected off. For the next 40 minutes, blunt dissection continued around the gallbladder itself. The patient was noted to have a significant "rind" about the gallbladder and its associated structures, undoubtedly due to chronic and longstanding disease processes. Once this was dissected, eventually a single pulsatile structure was noted to enter the gallbladder, and a single non-pulsatile structure was noted to enter the gallbladder. These were subsequently clipped and transected. Also, of note, prior to this, approximately two-thirds of the gallbladder had been mobilized off the gallbladder bed and a "clear view" of the gallbladder was obtained. The remaining one-third of the gallbladder was removed. There was some bile spillage; however, no gross spillage was noted, and a large gallbladder aspiration needle was also used to decrease the gallbladder size. Also, of note, there was a large amount of air noted in the stomach. An orogastric tube was attempted to be passed to desufflate this to increase visualization; however, this was not possible. The gallbladder was removed with some difficulty through the superior port. The gallbladder bed, the fossa, everything was inspected without abnormality. This was then thoroughly irrigated with 1 L of irrigation, which was removed. The wounds were irrigated, closed with 3-0 Vicryl and 4-0 Vicryl interrupted running fashion. Dermabond was applied. The patient tolerated the procedure well. Saw Garibay MD /[id number]
[2017-09-13 15:50] VITALS: BP 128/72
== END 2017-09-13 17:45 | disposition home or self-care (01) ==
LOC: JP.SDS 05:59 → JP.MS 09:28 → JP.SDS 17:45
PROVIDERS: ATTEND Surgery
DX: K81.2 Acute cholecystitis with chronic cholecystitis (principal); K82.9 Disease of gallbladder, unspecified; I12.9 Hypertensive chronic kidney disease with stage 1 through stage 4 chronic kidney disease, or unspecified chronic kidney disease; E11.22 Type 2 diabetes mellitus with diabetic chronic kidney disease; N18.3 Chronic kidney disease, stage 3 (moderate); J45.909 Unspecified asthma, uncomplicated; F17.200 Nicotine dependence, unspecified, uncomplicated; I25.2 Old myocardial infarction; F32.9 Major depressive disorder, single episode, unspecified; I82.409 Acute embolism and thrombosis of unspecified deep veins of unspecified lower extremity; K85.90 Acute pancreatitis without necrosis or infection, unspecified; Z79.899 Other long term (current) drug therapy; Z79.51 Long term (current) use of inhaled steroids
CPT/HCPCS: 36415; 47562; 80076; 82150; 83690; 88304; 94640; A9270; J0330; J0690; J1100; J1885; J2405; J2704; J2710; J3010; J3410; J7040; J7120; J7620

== ENCOUNTER 2020-04-09 13:11 | Emergency (ER) | payer BC, MEDICARE ==
[2020-04-09] MEDS ORDERED: Acetaminophen 500 MG Tab PO ONE (13:47)
--- NOTE | 2020-04-09 13:52 | EDM.PDOC ---
ED HPI GENERAL MEDICAL PROBLEM - General Chief Complaint: General Stated Complaint: TRIPPED AND FELL IN KITCHEN Time Seen by Provider: 04/09/20 13:40 Source of Information: Reports: Patient, Old Records, RN History Limitations: Reports: No Limitations - History of Present Illness INITIAL COMMENTS - FREE TEXT/NARRATIVE: 80 yo female has had body aches and loose stools for about a week. Has not been seen in the clinic. The diarrhea is getting better. Last week she fell. Today she called EMS to bring her in. She has no new injuries as result of her fall. No self tx today. Lives alone. Denies SOB or fever. Onset: Gradual Onset Date: 04/02/20 Duration: Week(s): (1) Location: Reports: Generalized Quality: Reports: Ache Severity: Severe Improves with: Reports: None Worsens with: Reports: Other (uncertain) Context: Reports: Other (see HPI) Associated Symptoms: Reports: Weakness (generalized). Denies: Cough, Diaphoresis, Fever/Chills, Nausea/Vomiting, Shortness of Breath Treatments [employer]GER: Reports: Other (see below) (none) bodyaches and joint pain Pain Score (Numeric/FACES): 7 - Related Data Allergies Allergy/AdvReac Type Severity Reaction Status Date / Time No Known Allergies Allergy Verified 04/09/20 13:47 Home Meds: Home Meds Metoprolol Tartrate 50 mg PO BID 06/07/16 [History] Furosemide 20 mg PO DAILY 09/07/17 [History] Multivitamin [Daily Derrick] 1 tab PO DAILY 09/07/17 [History] Fluticasone Propionate [Flovent HFA 110 MCG] 2 inhalation IH BID 09/08/17 [History] Chlorthalidone 25 mg PO DAILY 04/09/20 [History] Past Medical History HEENT History: Reports: Hard of Hearing, Impaired Vision Other HEENT History: wears glasses Cardiovascular History: Reports: Angina, Blood Clots/VTE/DVT, Hypertension, [place], SOB on Exertion Respiratory History: Reports: Asthma, Pneumonia, Recurrent, SOB Gastrointestinal History: Reports: GI Bleed, Pancreatitis, Other (See Below) Other Gastrointestinal History: gall stones Genitourinary History: Reports: Chronic Renal Insuffiency 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: , Spontaneous Musculoskeletal History: Reports: Arthritis, Back Pain, Chronic, Fracture Other Musculoskeletal History: Feet Psychiatric History: Reports: Depression Endocrine/Metabolic History: Reports: Obesity/BMI 30+ Hematologic History: Reports: Blood Transfusion(s) Dermatologic History: Reports: Other (See Below) Other Dermatologic History: rash - Infectious Disease History Infectious Disease History: Reports: Chicken Pox, Measles - Past Surgical History HEENT Surgical History: Reports: Cataract Surgery Cardiovascular Surgical History: Reports: Other (See Below) Other Cardiovascular Surgeries/Procedures: angiogram Respiratory Surgical History: Reports: None GI Surgical History: Reports: Appendectomy, Colonoscopy, Brook Fundoplication, Other (See Below) Other GI Surgeries/Procedures: hiatal hernia repair 1 yr ago Female Surgical History: Reports: Hysterectomy, Salpingo-Oophorectomy Endocrine Surgical History: Reports: None Musculoskeletal Surgical History: Reports: Knee Replacement, Other (See Below) Other Musculoskeletal Surgeries/Procedures:: achilles tendon repair Dermatological Surgical History: Reports: None Social & Family History - Family History Cardiac: Reports: Aneurysm Respiratory: Reports: Asthma Musculoskeletal: Reports: Arthritis, Back pain, Chronic Neurological: Reports: CVA Oncologic: Reports: Colon, Skin - Caffeine Use Caffeine Use: Reports: Coffee ED ROS GENERAL - Review of Systems Review Of Systems: See Below Constitutional: Reports: Malaise, Weakness, Fatigue. Denies: Fever HEENT: Reports: No Symptoms Respiratory: Reports: No Symptoms Cardiovascular: Reports: No Symptoms Endocrine: Reports: No Symptoms GI/Abdominal: Reports: Diarrhea. Denies: Hematemesis, Hematochezia, Melena, Nausea, Vomiting : Reports: No Symptoms Musculoskeletal: Reports: Other (diffuse muscle pain) Skin: Reports: No Symptoms Neurological: Reports: No Symptoms ED EXAM, GENERAL - Physical Exam Exam: See Below Exam Limited By: No Limitations General Appearance: Alert, WD/WN, No Apparent Distress, Obese Eye Exam: Bilateral Eye: EOMI, PERRL Ears: Normal External Exam, Normal Canal, Hearing Grossly Normal, Normal TMs Ear Exam: Bilateral Ear: Auricle Normal, Canal Normal Nose: Normal Inspection, No Blood Throat/Mouth: Normal Inspection, Normal Lips, Normal Oropharynx, Normal Voice, No Airway Compromise Head: Atraumatic, Normocephalic Neck: Normal Inspection, Supple, Non-Tender Respiratory/Chest: No Respiratory Distress, Lungs Clear, Normal Breath Sounds, No Accessory Muscle Use Cardiovascular: Regular Rate, Rhythm, No Edema GI/Abdominal: Normal Bowel Sounds, Soft, Non-Tender, No Distention Extremities: Normal Inspection, Normal Range of Motion, Non-Tender, No Pedal Edema Neurological: Alert, Oriented, CN II-XII Intact, Normal Cognition, No Motor/Sensory Deficits Psychiatric: Normal Affect, Normal Mood Course - Vital Signs Last Recorded V/S: Last Vital Signs Temp 97.7 C H 04/09/20 13:57 Pulse 62 04/09/20 15:40 Resp 20 04/09/20 15:40 BP 173/71 H 04/09/20 15:40 Pulse Ox 96 04/09/20 15:40 - Orders/Labs/Meds Orders: Active Orders 24 hr Category Date Time Status CORONAVIRUS COVID-19, JOSÉ Stat Lab 04/09/20 13:48 Ordered NS + KCl 20mEq/L [Normal Saline with 20 mEq KCl] 1,000 Med 04/09/20 16:30 Active ml IV ASDIRECTED Medication Orders Potassium Chloride/Sodium Chloride (Normal Saline With 20 Meq Kcl) 1,000 mls @ 1,000 mls/hr IV ASDIRECTED WINSTON Last Admin: 04/09/20 16:30 Dose: 1,000 mls/hr Documented by: PREILOR Labs: Laboratory Tests 04/09/20 04/09/20 04/09/20 Range/Units 14:10 14:10 16:01 WBC 5.1 (4.5-11.0) K/uL RBC 5.67 H (3.30-5.50) M/uL Hgb 16.2 H D (12.0-15.0) g/dL Hct 50.1 H (36.0-48.0) % MCV 88 (80-98) fL MCH 29 (27-31) pg MCHC 32 (32-36) % Plt Count 198 (150-400) K/uL Sodium 132 L (140-148) mmol/L Potassium 3.6 (3.6-5.2) mmol/L Chloride 94 L (100-108) mmol/L Carbon Dioxide 26 (21-32) mmol/L Anion Gap 15.6 H (5.0-14.0) mmol/L BUN 40 H D (7-18) mg/dL Creatinine 1.7 H D (0.6-1.0) mg/dL Est Cr Clr Drug Dosing TNP Estimated GFR (MDRD) 29 L (>60) Glucose 150 H (74-106) mg/dL Calcium 8.8 (8.5-10.1) mg/dL Magnesium (1.8-2.4) mg/dL Total Bilirubin 0.4 D (0.2-1.0) mg/dL AST 40 H (15-37) U/L ALT 40 (12-78) U/L Alkaline Phosphatase 65 (46-116) U/L Troponin I 0.025 (0.000-0.056) ng/mL Total Protein 7.8 (6.4-8.2) g/dL Albumin 3.2 L (3.4-5.0) g/dL Globulin 4.6 H (2.3-3.5) g/dL Albumin/Globulin Ratio 0.7 L (1.2-2.2) Urine Color (YELLOW) Urine Appearance (CLEAR) Urine pH (5.0-8.0) Ur Specific [place] (1.008-1.030) Urine Protein (NEGATIVE) mg/dL Urine Glucose (UA) (NEGATIVE) mg/dL Urine Ketones (NEGATIVE) mg/dL Urine Occult Blood (NEGATIVE) Urine Nitrite (NEGATIVE) Urine Bilirubin (NEGATIVE) Urine Urobilinogen (0.2-1.0) EU/dL Ur Leukocyte Esterase (NEGATIVE) Urine RBC (0-5) Urine WBC (0-5) Ur Epithelial Cells Urine Bacteria SARS CoV-2 RNA Rapid JOSÉ Positive H 04/09/20 04/09/20 Range/Units 16:28 16:28 WBC (4.5-11.0) K/uL RBC (3.30-5.50) M/uL Hgb (12.0-15.0) g/dL Hct (36.0-48.0) % MCV (80-98) fL MCH (27-31) pg MCHC (32-36) % Plt Count (150-400) K/uL Sodium (140-148) mmol/L Potassium (3.6-5.2) mmol/L Chloride (100-108) mmol/L Carbon Dioxide (21-32) mmol/L Anion Gap (5.0-14.0) mmol/L BUN (7-18) mg/dL Creatinine (0.6-1.0) mg/dL Est Cr Clr Drug Dosing Estimated GFR (MDRD) (>60) Glucose (74-106) mg/dL Calcium (8.5-10.1) mg/dL Magnesium 1.6 L (1.8-2.4) mg/dL Total Bilirubin (0.2-1.0) mg/dL AST (15-37) U/L ALT (12-78) U/L Alkaline Phosphatase (46-116) U/L Troponin I (0.000-0.056) ng/mL Total Protein (6.4-8.2) g/dL Albumin (3.4-5.0) g/dL Globulin (2.3-3.5) g/dL Albumin/Globulin Ratio (1.2-2.2) Urine Color Yellow (YELLOW) Urine Appearance Clear (CLEAR) Urine pH 6.5 (5.0-8.0) Ur Specific [place] 1.020 (1.008-1.030) Urine Protein 100 H (NEGATIVE) mg/dL Urine Glucose (UA) Negative (NEGATIVE) mg/dL Urine Ketones Negative (NEGATIVE) mg/dL Urine Occult Blood Trace-intact H (NEGATIVE) Urine Nitrite Negative (NEGATIVE) Urine Bilirubin Negative (NEGATIVE) Urine Urobilinogen 0.2 (0.2-1.0) EU/dL Ur Leukocyte Esterase Trace H (NEGATIVE) Urine RBC Not seen (0-5) Urine WBC 20-30 H (0-5) Ur Epithelial Cells Moderate Urine Bacteria Few SARS CoV-2 RNA Rapid JOSÉ Meds: Medications Generic Name Dose Route Start Last Admin Trade Name Freq PRN Reason Stop Dose Admin Potassium Chloride/Sodium Chloride 1,000 mls @ 1,000 mls/hr 04/09/20 16:30 04/09/20 16:30 Normal Saline With 20 Meq Kcl IV 1,000 mls/hr ASDIRECTED WINSTON Administration Discontinued Medications Generic Name Dose Route Start Last Admin Trade Name Freq PRN Reason Stop Dose Admin Acetaminophen 1,000 mg 04/09/20 13:47 04/09/20 13:52 Tylenol Extra Strength PO 04/09/20 13:48 1,000 mg ONETIME ONE Administration Sodium Chloride 1,000 mls @ 1,000 mls/hr 04/09/20 14:40 04/09/20 15:17 Normal Saline IV 04/09/20 15:39 1,000 mls/hr .BOLUS ONE Administration Magnesium Oxide 400 mg 04/09/20 17:06 04/09/20 17:12 Magnesium Oxide PO 04/09/20 17:07 400 mg ONETIME ONE Administration Departure - Departure Time of Disposition: 18:00 Disposition: Home, Self-Care 01 Condition: Fair Clinical Impression: COVID-19, Mild dehydration, Hyponatremia - Discharge Information *PRESCRIPTION DRUG MONITORING PROGRAM REVIEWED*: Not Applicable *COPY OF PRESCRIPTION DRUG MONITORING REPORT IN PATIENT MOIZ: Not Applicable Referrals: PCP,None [Primary Care Provider] - Forms: ED Department Discharge Additional Instructions: Take acetaminophen every 6hrs, 1000 mg. Drink adequate fluids. Rest. Self isolate for another week. Recheck if worse. Sepsis Event Note (ED) - Focused Exam Vital Signs: Vital Signs Temp Pulse Resp BP Pulse Ox 04/09/20 15:40 62 20 173/71 H 96 04/09/20 14:55 61 20 176/78 H 94 L 04/09/20 13:57 97.7 C H 65 16 151/78 H 93 L 04/09/20 13:43 97.7 C H 65 16 151/78 H 93 L - My Orders Last 24 Hours: My Active Orders 04/09/20 13:48 CORONAVIRUS COVID-19, JOSÉ Stat 04/09/20 16:30 NS + KCl 20mEq/L [Normal Saline with 20 mEq KCl] 1,000 ml IV ASDIRECTED - Assessment/Plan Last 24 Hours: My Active Orders 04/09/20 13:48 CORONAVIRUS COVID-19, JOSÉ Stat 04/09/20 16:30 NS + KCl 20mEq/L [Normal Saline with 20 mEq KCl] 1,000 ml IV ASDIRECTED
[2020-04-09] MEDS ORDERED: Sodium Chloride 0.9% 1,000 ML IV ONE (14:40)
[2020-04-09] MEDS ORDERED: NS + KCl 20mEq/L 1,000 ML IV SCH (16:30)
[2020-04-09] MEDS ORDERED: Magnesium Oxide 400 MG Tab PO ONE (17:06)
[2020-04-09 18:24] VITALS: BP 143/77; PULSE 64
== END 2020-04-09 18:40 | disposition home or self-care (01) ==
LOC: JP.ED 13:11
DX: U07.1 COVID-19 (principal); E86.0 Dehydration; E87.1 Hypo-osmolality and hyponatremia; I25.2 Old myocardial infarction; J45.909 Unspecified asthma, uncomplicated; I12.9 Hypertensive chronic kidney disease with stage 1 through stage 4 chronic kidney disease, or unspecified chronic kidney disease; N18.9 Chronic kidney disease, unspecified; E66.9 Obesity, unspecified; Z68.41 Body mass index [BMI] 40.0-44.9, adult; Z79.899 Other long term (current) drug therapy
CPT/HCPCS: 36415; 80053; 81001; 83735; 84484; 85027; 99284; A9270; J3480; J7030; U0002

== ENCOUNTER 2021-03-14 03:55 | Emergency (ER) | payer MEDICARE ==
[2021-03-14] MEDS ORDERED: Sodium Chloride 0.9% 10 ML Syringe FLUSH PRN (04:02)
[2021-03-14] MEDS ORDERED: Diltiazem 25 MG/5 ML SDV IVPUSH ONE (04:10)
--- NOTE | 2021-03-14 04:17 | EDM.PDOC ---
ED HPI GENERAL MEDICAL PROBLEM - General Chief Complaint: Cardiovascular Problem Stated Complaint: MEDICAL VIA [place] Time Seen by Provider: 03/14/21 04:02 Source of Information: Reports: Patient, EMS History Limitations: Reports: No Limitations - History of Present Illness INITIAL COMMENTS - FREE TEXT/NARRATIVE: Tori is an 81-year-old female brought in by [facility] for evaluation of new onset of atrial fib with rapid ventricular response. The patient states that she was unable to sleep tonight because of the palpitations. She does not have a previous history of atrial fibrillation. She has felt the fluttering in her chest but denies any chest pain or shortness of breath. She has had some ankle swelling. The patient has a previous history for pulmonary emboli but is not on any anticoagulation. She also has a significant history for hyponatremia and hypokalemia. She presents in an irregularly irregular rhythm and a rapid ventricular response between 120 and 160 bpm. Her SPO2 is 96% on room air. - Related Data Allergies Allergy/AdvReac Type Severity Reaction Status Date / Time No Known Allergies Allergy Verified 04/09/20 13:47 Home Meds: Home Meds Metoprolol Tartrate 50 mg PO DAILY 06/07/16 [History] Multivitamin [Daily Derrick] 1 tab PO DAILY 09/07/17 [History] Fluticasone Propionate [Flovent HFA 110 MCG] 2 inhalation IH BID 09/08/17 [History] Apixaban [Eliquis] 5 mg PO BID #60 tablet 03/14/21 [Rx] Diltiazem HCl [Diltiazem 24Hr ER] 120 mg PO DAILY #30 cap.er.24h 03/14/21 [Rx] Furosemide [Lasix] 20 mg PO DAILY #14 tab 03/14/21 [Rx] Losartan [Cozaar] 50 mg PO DAILY 03/14/21 [History] fluorouraciL [Efudex 5% Cream] 40 gm .XX DAILY 03/14/21 [History] Past Medical History HEENT History: Reports: Hard of Hearing, Impaired Vision Other HEENT History: wears glasses Cardiovascular History: Reports: Angina, Blood Clots/VTE/DVT, Hypertension, [place], SOB on Exertion Respiratory History: Reports: Asthma, Pneumonia, Recurrent, SOB Gastrointestinal History: Reports: GI Bleed, Pancreatitis, Other (See Below) Other Gastrointestinal History: gall stones Genitourinary History: Reports: Chronic Renal Insuffiency 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: , Spontaneous Musculoskeletal History: Reports: Arthritis, Back Pain, Chronic, Fracture Other Musculoskeletal History: Feet Psychiatric History: Reports: Depression Endocrine/Metabolic History: Reports: Obesity/BMI 30+ Hematologic History: Reports: Blood Transfusion(s) Dermatologic History: Reports: Other (See Below) Other Dermatologic History: rash - Infectious Disease History Infectious Disease History: Reports: Chicken Pox, Measles, Mumps - Past Surgical History HEENT Surgical History: Reports: Cataract Surgery Cardiovascular Surgical History: Reports: Other (See Below) Other Cardiovascular Surgeries/Procedures: angiogram Respiratory Surgical History: Reports: None GI Surgical History: Reports: Appendectomy, Colonoscopy, Brook Fundoplication, Other (See Below) Other GI Surgeries/Procedures: hiatal hernia repair 1 yr ago Female Surgical History: Reports: Hysterectomy, Salpingo-Oophorectomy Endocrine Surgical History: Reports: None Musculoskeletal Surgical History: Reports: Knee Replacement, Other (See Below) Other Musculoskeletal Surgeries/Procedures:: achilles tendon repair Dermatological Surgical History: Reports: None Social & Family History - Family History Cardiac: Reports: Aneurysm Respiratory: Reports: Asthma Musculoskeletal: Reports: Arthritis, Back pain, Chronic Neurological: Reports: CVA Oncologic: Reports: Colon, Skin - Caffeine Use Caffeine Use: Reports: Coffee ED ROS GENERAL - Review of Systems Review Of Systems: See Below Constitutional: Reports: No Symptoms HEENT: Reports: No Symptoms Respiratory: Reports: No Symptoms Cardiovascular: Reports: Edema, Palpitations. Denies: Chest Pain Endocrine: Reports: No Symptoms GI/Abdominal: Reports: No Symptoms : Reports: No Symptoms Musculoskeletal: Reports: No Symptoms Skin: Reports: Rash (Shingles on the back going to the left hip) Neurological: Reports: No Symptoms Psychiatric: Reports: No Symptoms Hematologic/Lymphatic: Reports: No Symptoms Immunologic: Reports: No Symptoms ED EXAM, GENERAL - Physical Exam Exam: See Below Exam Limited By: No Limitations General Appearance: Alert, No Apparent Distress, Anxious Eye Exam: Bilateral Eye: EOMI, PERRL Throat/Mouth: Normal Inspection, Normal Oropharynx, Normal Voice, No Airway Compromise Head: Atraumatic, Normocephalic Neck: Normal Inspection, Supple, Full Range of Motion. No: Lymphadenopathy (R), Lymphadenopathy (L) Respiratory/Chest: No Respiratory Distress, Lungs Clear, Normal Breath Sounds Cardiovascular: No Murmur, Tachycardia, Irregularly Irregular Peripheral Pulses: 2+: Radial (L), Radial (R), Posterior Tibial (L), Posterior Tibial (R) GI/Abdominal: Normal Bowel Sounds, Soft, Non-Tender, No Distention. No: Guarding, Rebound Extremities: Normal Range of Motion, Pedal Edema (Bilateral 1+ edema in the feet, ankles, and lower legs.) Neurological: Alert, Oriented, Normal Cognition, No Motor/Sensory Deficits Skin Exam: Warm, Dry, Rash (Shingles on the lower back and left hip area) #1 Interpretation EKG Date: 03/14/21 Time: 04:00 Rhythm: A-Fib (With a ventricular rate between 100 -160 bpm.) [place]: LAD-Left [place] Deviation P-Wave: Absent QRS: LBBB QT: Prolonged Comparison: Change From Previous EKG (Atrial fibrillation is new when compared to previous EKG of 09/07/2017. Left bundle branch block was present on the previous EKG.) Course - Vital Signs Last Recorded V/S: Last Vital Signs Temp 35.5 C L 03/14/21 04:08 Pulse 88 03/14/21 06:06 Resp 15 03/14/21 06:06 BP 113/77 03/14/21 06:06 Pulse Ox 95 03/14/21 06:06 - Orders/Labs/Meds Orders: Active Orders 24 hr Category Date Time Status Chest 2V [CR] Stat Exams 03/14/21 05:10 Taken Sodium Chloride 0.9% [Saline Flush] Med 03/14/21 04:02 Active 10 ml FLUSH ASDIRECTED PRN Saline Lock Insert [OM.PC] Routine Oth 03/14/21 04:02 Ordered EKG 12 Lead [EK] Routine Ther 03/14/21 04:02 Ordered Medication Orders Sodium Chloride (Sodium Chloride 0.9% 10 Ml Syringe) 10 ml FLUSH ASDIRECTED PRN PRN Reason: Keep Vein Open Last Admin: 03/14/21 06:00 Dose: 10 ml Documented by: MICHA Labs: Laboratory Tests 03/14/21 03/14/21 03/14/21 Range/Units 04:05 04:05 04:05 WBC 9.8 (4.5-11.0) K/uL RBC 5.38 (3.30-5.50) M/uL Hgb 15.9 H (12.0-15.0) g/dL Hct 46.9 (36.0-48.0) % MCV 87 (80-98) fL MCH 30 (27-31) pg MCHC 34 (32-36) % Plt Count 259 (150-400) K/uL Neut % (Auto) 63.6 (36-66) % Lymph % (Auto) 21.9 L (24-44) % Noble % (Auto) 10.9 H (2-6) % Eos % (Auto) 3.3 (2-4) % Baso % (Auto) 0.3 (0-1) % PT 10.8 H (9.2-10.6) sec INR 1.1 APTT 24.7 (21.4-31.8) sec Sodium 131 L (140-148) mmol/L Potassium 3.4 L (3.6-5.2) mmol/L Chloride 96 L (100-108) mmol/L Carbon Dioxide 21 (21-32) mmol/L Anion Gap 17.4 H (5.0-14.0) mmol/L BUN 36 H (7-18) mg/dL Creatinine 1.4 H (0.6-1.0) mg/dL Est Cr Clr Drug Dosing 28.36 mL/min Estimated GFR (MDRD) 36 L (>60) Glucose 125 H (74-106) mg/dL Calcium 9.6 (8.5-10.1) mg/dL Total Bilirubin 0.6 (0.2-1.0) mg/dL AST 21 (15-37) U/L ALT 30 (12-78) U/L Alkaline Phosphatase 55 (46-116) U/L Troponin I 0.024 (0.000-0.056) ng/mL NT-Pro-B Natriuret Pep (5-450) pg/mL Total Protein 7.0 (6.4-8.2) g/dL Albumin 3.6 (3.4-5.0) g/dL Globulin 3.4 (2.3-3.5) g/dL Albumin/Globulin Ratio 1.1 L (1.2-2.2) Free T4 (0.76-1.46) ng/dL TSH, Ultra Sensitive 4.353 H (0.358-3.740) uIU/mL 03/14/21 03/14/21 Range/Units 04:05 05:02 WBC (4.5-11.0) K/uL RBC (3.30-5.50) M/uL Hgb (12.0-15.0) g/dL Hct (36.0-48.0) % MCV (80-98) fL MCH (27-31) pg MCHC (32-36) % Plt Count (150-400) K/uL Neut % (Auto) (36-66) % Lymph % (Auto) (24-44) % Noble % (Auto) (2-6) % Eos % (Auto) (2-4) % Baso % (Auto) (0-1) % PT (9.2-10.6) sec INR APTT (21.4-31.8) sec Sodium (140-148) mmol/L Potassium (3.6-5.2) mmol/L Chloride (100-108) mmol/L Carbon Dioxide (21-32) mmol/L Anion Gap (5.0-14.0) mmol/L BUN (7-18) mg/dL Creatinine (0.6-1.0) mg/dL Est Cr Clr Drug Dosing mL/min Estimated GFR (MDRD) (>60) Glucose (74-106) mg/dL Calcium (8.5-10.1) mg/dL Total Bilirubin (0.2-1.0) mg/dL AST (15-37) U/L ALT (12-78) U/L Alkaline Phosphatase (46-116) U/L Troponin I (0.000-0.056) ng/mL NT-Pro-B Natriuret Pep 710 H (5-450) pg/mL Total Protein (6.4-8.2) g/dL Albumin (3.4-5.0) g/dL Globulin (2.3-3.5) g/dL Albumin/Globulin Ratio (1.2-2.2) Free T4 1.42 (0.76-1.46) ng/dL TSH, Ultra Sensitive (0.358-3.740) uIU/mL Meds: Medications Generic Name Dose Route Start Last Admin Trade Name Freq PRN Reason Stop Dose Admin Sodium Chloride 10 ml 03/14/21 04:02 03/14/21 06:00 Sodium Chloride 0.9% 10 Ml Syringe FLUSH 10 ml ASDIRECTED PRN Administration Keep Vein Open Discontinued Medications Generic Name Dose Route Start Last Admin Trade Name [place] PRN Reason Stop Dose Admin Diltiazem HCl 20 mg 03/14/21 04:10 03/14/21 04:19 Diltiazem 25 Mg/5 Ml Sdv IVPUSH 03/14/21 04:11 20 mg ONETIME ONE Administration Furosemide 40 mg 03/14/21 05:53 03/14/21 05:58 Furosemide 40 Mg/4 Ml Vial IVPUSH 03/14/21 05:54 40 mg ONETIME ONE Administration - Re-Assessments/Exams Free Text/Narrative Re-Assessment/Exam: 03/14/21 04:54 the patient arrived to the ED and a EKG was obtained showing atrial fibrillation with a rapid ventricular response and left bundle branch block. The left bundle branch block was seen on previous EKG on 09/07/2017 but the A. fib is new. There is nothing further that can be determined from the EKG at this time. An IV was established and labs were obtained. The patient was given diltiazem 20 mg IV push with excellent response bringing her rates into the 70s to 80s. Currently, the patient is not experiencing any symptoms. Her pressures are stable at 120/65. She is oxygenating at 91% on room air. Respiratory rate is 15. The labs were reviewed and show white count of 9.8, hemoglobin of 15.9, hematocrit of 46.9 and platelet count of 259,000. Her comprehensive metabolic panel shows a sodium 131, potassium 3.4, chloride of 96, bicarbonate of 21, BUN of 36 with a creatinine 1.4 and a glucose of 125. Her PT INR is 10.8/1.1. Her PTT is 24.7. Her TSH is elevated at 4.35 with a free T4 in the normal range at 1.42. Her BNP is 710. 03/14/21 05:50 patient underwent a chest x-ray 2 view showing left ventricular enlargement/cardiomegaly. There is mild pulmonary edema with cephalization of the vessels. There is no acute infiltrates. There is no pleural effusions. Her EKG still showing atrial fibrillation with a ventricular rate between 70 and 82. This is after the patient received diltiazem 20 mg IV push. Patient was given Lasix 40 mg IV. Apparently she has not been taking her Lasix for the last week. 03/14/21 06:50 patient has had excellent response with the dose of diltiazem but remains in atrial fibrillation. We will start her on diltiazem ER 120 mg daily. Her CHADs 2 VASC score is 2 which would indicate starting anticoagulation so we will start her on Eliquis 5 mg twice daily. I also would like her to restart her Lasix to diuresis. I had like her to follow-up with her primary care provider this week for recheck. Indications return to the ED were discussed. At this time a believe she is suitable for discharge home as she is symptom-free. Departure - Departure Time of Disposition: 06:52 Disposition: Home, Self-Care 01 Clinical Impression: Atrial fibrillation with rapid ventricular response, Peripheral edema Congestive heart failure Qualifiers: Heart failure type: combined systolic and diastolic Heart failure chronicity: acute on chronic Qualified Code(s): I50.43 - Acute on chronic combined systolic (congestive) and diastolic (congestive) heart failure Prescriptions: Diltiazem HCl [Diltiazem 24Hr ER] 120 mg PO DAILY #30 cap.er.24h Apixaban [Eliquis] 5 mg PO BID #60 tablet Furosemide [Lasix] 20 mg PO DAILY #14 tab Instructions: Heart Failure Medicines, Atrial Fibrillation, [id number], Heart Failure, Self Care, [id number] Referrals: PCP,None [Primary Care Provider] - Forms: ED Department Discharge Care Plan Goals: I am starting you on diltiazem ER 120 mg daily to rate control your atrial fibrillation. You need to contact your primary care provider as they may want you to undergo an echocardiogram and further work-up for why you are going into atrial fibrillation. In addition we are starting you on Eliquis which is a blood thinner to prevent stroke when you are in atrial fibrillation. You will take 5 mg twice daily for this. Finally, I would like you to restart your Lasix and have prescribed 20 mg daily for the next 14 days. Again I would like you to follow-up with your primary care provider as soon as possible. Sepsis Event Note (ED) - Evaluation Sepsis Screening Result: No Definite Risk - Focused Exam Vital Signs: Vital Signs Temp Pulse Resp BP Pulse Ox 03/14/21 06:06 88 15 113/77 95 03/14/21 05:06 65 15 124/68 91 L 03/14/21 04:17 80 16 120/66 91 L 03/14/21 04:08 35.5 C L 100 21 H 147/84 H 94 L - Problem List & Annotations (1) Atrial fibrillation with rapid ventricular response SNOMED Code(s): 856931995465631 Code(s): I48.91 - UNSPECIFIED ATRIAL FIBRILLATION Status: Acute Priority: High Current Visit: Yes (2) Congestive heart failure SNOMED Code(s): 58730135 Code(s): I50.9 - HEART FAILURE, UNSPECIFIED Status: Acute Priority: High Current Visit: Yes Qualifiers: Heart failure type: combined systolic and diastolic Heart failure chronicity: acute on chronic Qualified Code(s): I50.43 - Acute on chronic combined systolic (congestive) and diastolic (congestive) heart failure (3) Peripheral edema SNOMED Code(s): 803184972 Code(s): R60.9 - EDEMA, UNSPECIFIED Status: Acute Priority: High Current Visit: Yes - Problem List Review Problem List Initiated/Reviewed/Updated: Yes - My Orders Last 24 Hours: My Active Orders 03/14/21 04:02 Sodium Chloride 0.9% [Saline Flush] 10 ml FLUSH ASDIRECTED PRN Saline Lock Insert [OM.PC] Routine EKG 12 Lead [EK] Routine 03/14/21 05:10 Chest 2V [CR] Stat - Assessment/Plan Last 24 Hours: My Active Orders 03/14/21 04:02 Sodium Chloride 0.9% [Saline Flush] 10 ml FLUSH ASDIRECTED PRN Saline Lock Insert [OM.PC] Routine EKG 12 Lead [EK] Routine 03/14/21 05:10 Chest 2V [CR] Stat
[2021-03-14] MEDS ORDERED: Furosemide 40 MG/4 ML VIAL IVPUSH ONE (05:53)
[2021-03-14 06:24] VITALS: BP 113/77; PULSE 88
--- NOTE | 2021-03-14 08:54 | CR ---
CHEST: 2 view CLINICAL HISTORY:New onset A. fib COMPARISON:None FINDINGS: The heart size, pulmonary vascularity and hilar structures are normal. This minimal patchy density in the left infrahilar region. This may represent some minimal infiltrate or atelectasis IMPRESSION: Minimal patchy density in the left infrahilar region of questionable significance. This may represent minimal infiltrate or atelectasis
== END 2021-03-14 07:03 | disposition home or self-care (01) ==
LOC: JP.ED 03:55
DX: I48.91 Unspecified atrial fibrillation (principal); R60.0 Localized edema; I13.0 Hypertensive heart and chronic kidney disease with heart failure and stage 1 through stage 4 chronic kidney disease, or unspecified chronic kidney disease; N18.9 Chronic kidney disease, unspecified; I50.43 Acute on chronic combined systolic (congestive) and diastolic (congestive) heart failure; I25.2 Old myocardial infarction; E66.9 Obesity, unspecified; Z68.39 Body mass index [BMI] 39.0-39.9, adult; Z86.718 Personal history of other venous thrombosis and embolism; Z79.01 Long term (current) use of anticoagulants; Z79.899 Other long term (current) drug therapy
CPT/HCPCS: 36415; 71046; 80053; 83880; 84439; 84443; 84484; 85025; 85610; 85730; 93005; 96374; 96375; 99285; J1940; J3490

== ENCOUNTER 2023-12-07 07:05 | Inpatient (IN) | payer MEDICARE ==
[2023-12-07] MEDS ORDERED: Sodium Chloride 0.9% 10 ML Syringe FLUSH PRN ×3 (07:08→12:53)
[2023-12-07] MEDS: Nitroglycerin 0.4 MG Tab.SL SL ONE (07:13)
[2023-12-07 07:18] LABS: BASOPHILS ABSOLUTE AUTO 0.07 K/uL (0.00-0.10); BASOPHILS PERCENT AUTO 0.3 % (0.1-1.3); EOSINOPHILS ABSOLUTE AUTO 0.15 K/uL (0.00-0.40); EOSINOPHILS PERCENT AUTO 0.7 % (0.0-5.4); HEMATOCRIT 52.3 % (34.3-46.0); HEMOGLOBIN 16.8 g/dL (11.2-15.5); IMMATURE GRAN ABSOLUTE AUTO 0.11 K/uL (0.00-0.23); IMMATURE GRAN PERCENT AUTO 0.5 % (0.0-0.7); LYMPHOCYTES ABSOLUTE AUTO 2.03 K/uL (0.8-3.3); LYMPHOCYTES PERCENT AUTO 9.1 % (11.4-47.7); MEAN CORPUSCULAR HEMOGLOBIN 30.8 pg (31.6-35.5); MEAN CORPUSCULAR HGB CONC 32.1 g/dL (31.6-35.5); MONOCYTES ABSOLUTE AUTO 1.14 K/uL (0.20-0.90); MONOCYTES PERCENT AUTO 5.1 % (3.3-12.6); NEUTROPHILS ABSOLUTE AUTO 18.71 K/uL (1.0-7.6); NEUTROPHILS PERCENT AUTO 84.3 % (40.0-78.1); PLATELET COUNT,PLT 367 K/uL (130-375); RED BLOOD CELL COUNT 5.45 M/uL (3.77-5.24); WHITE BLOOD CELL COUNT,WBC 22.2 K/uL (3.2-11.0)
[2023-12-07] MEDS: Morphine 4 MG/ML Syringe IVPUSH ONE (07:20)
[2023-12-07 07:51] LABS: A/G RATIO 0.5 (1.2-2.2); ALANINE AMINOTRANSFERASE,ALT 36 U/L (12-78); ALBUMIN 3.2 g/dL (3.4-5.0); ALKALINE PHOSPHATASE 81 U/L (46-116); ASPARTATE AMNIOTRANSFERASE,AST 25 U/L (15-37); BILIRUBIN TOTAL 0.6 mg/dL (0.2-1.0); BLOOD UREA NITROGEN,BUN 28 mg/dL (7-18); CALCIUM 9.5 mg/dL (8.5-10.1); CARBON DIOXIDE,CO2 27 mmol/L (21-32); CHLORIDE,CL 101 mmol/L (100-108); CREATININE 1.5 mg/dL (0.6-1.0); EST CRCL DRUG DOSING (CG) 24.54 mL/min; ESTIMATED GFR 34 mL/min (>60); GLUCOSE RANDOM 210 mg/dL (74-106); LACTIC ACID 2.1 mmol/L (0.4-2.0); POTASSIUM,K 4.4 mmol/L (3.6-5.2); PROTEIN TOTAL,TP 9.2 g/dL (6.4-8.2); SODIUM,NA 139 mmol/L (140-148); TROPONIN I HIGH SENSITIVITY 35.6 pg/mL (<=60.3)
[2023-12-07 07:54] LABS: BASE EXCESS ARTERIAL -1.8 mm/L; BICARBONATE,ARTERIAL 23.2 mmol/L (22.0-26.0); CARBOXYHEMOGLOBIN 3.3 % (0.0-1.6); METHEMOGLOBIN 0.8 %; O2 SATURATION ARTERIAL 98.8 % (95.0-98.0); OXYHEMOGLOBIN 94.7 %; TOTAL HEMOGLOBIN 16.6 g/dL (12.0-16.0)
[2023-12-07 07:55] LABS: ANION GAP 15.4 mmol/L (5.0-14.0)
[2023-12-07] MEDS: Sodium Chloride 0.9% 1,000 ML IV SCH ×2 (08:59→18:12)
[2023-12-07] MEDS: cefTRIAXone 1 GM in Sodium Chloride 0.9% 50 ML IV ONE (09:00)
[2023-12-07] MEDS: Doxycycline 100 MG in Sodium Chloride 0.9% 100 ML IV ONE (09:01)
[2023-12-07] MEDS: Furosemide 40 MG/4 ML VIAL IVPUSH ONE (09:03)
[2023-12-07 09:38] LABS: BASE EXCESS ARTERIAL -0.7 mm/L; BICARBONATE,ARTERIAL 26.6 mmol/L (22.0-26.0); CARBOXYHEMOGLOBIN 1.8 % (0.0-1.6); METHEMOGLOBIN 0.9 %; O2 SATURATION ARTERIAL 95.3 % (95.0-98.0); OXYHEMOGLOBIN 92.7 %; PCO2 ARTERIAL 56.8 mmHg (35.0-42.0); PO2 ARTERIAL 89.9 mmHg (75.0-100.0); TOTAL HEMOGLOBIN 15.3 g/dL (12.0-16.0)
[2023-12-07] MEDS ORDERED: Ondansetron 4 MG/2 ML SDV IV PRN (12:53)
[2023-12-07] MEDS ORDERED: Polyethylene Glycol 3350 Powder 17 GM Packet PO PRN (12:53)
[2023-12-07] MEDS ORDERED: Albuterol 0.083% 2.5 MG/3 ML Neb Soln NEB PRN (12:53)
[2023-12-07] MEDS ORDERED: hydrALAZINE 10 MG Tab PO SCH (14:00)
[2023-12-07] MEDS: Diltiazem 25 MG/5 ML SDV IVPUSH ONE (14:02)
[2023-12-07] MEDS: Azithromycin 500 MG in Sodium Chloride 0.9% 250 ML IV SCH (14:07)
[2023-12-07] MEDS: Enoxaparin 30 MG/0.3 ML Syringe SUBCUT SCH (14:15)
[2023-12-07] MEDS: methylPREDNISolone Sodium Succinate 40 MG/1 ML SDV IVPUSH SCH (14:22)
[2023-12-07] MEDS: Diltiazem 100 MG in Sodium Chloride 0.9% 100 ML IV SCH (14:25)
[2023-12-07] MEDS: Albuterol/Ipratropium 3.0-0.5 MG/3 ML Neb Soln NEB SCH (14:44)
[2023-12-07] MEDS: Mometasone Furoate HFA 100mcg/Puff 13 GM Inhaler INH SCH (21:10)
[2023-12-07] MEDS: Non-Formulary Medication 1 Each (Budesonide/Glycopyr/Formoterol [Breztri Aerosphere Inhale PO SCH (21:13)
[2023-12-08 06:20] LABS: HEMATOCRIT 44.2 % (34.3-46.0); HEMOGLOBIN 14.3 g/dL (11.2-15.5); MEAN CORPUSCULAR HGB CONC 32.4 g/dL (31.6-35.5); MEAN CORPUSCULAR VOLUME 95.7 fL (81.4-99.0); RED BLOOD CELL COUNT 4.62 M/uL (3.77-5.24); WHITE BLOOD CELL COUNT,WBC 11.1 K/uL (3.2-11.0)
[2023-12-08 06:39] LABS: CALCIUM 8.8 mg/dL (8.5-10.1); CREATININE 1.6 mg/dL (0.6-1.0); EST CRCL DRUG DOSING (CG) 23.01 mL/min; MAGNESIUM 1.7 mg/dL (1.8-2.4); POTASSIUM,K 4.9 mmol/L (3.6-5.2)
[2023-12-08 06:40] LABS: ANION GAP 13.9 mmol/L (5.0-14.0)
[2023-12-08] MEDS: cefTRIAXone 1 GM in Sodium Chloride 0.9% 50 ML IV SCH (08:01)
[2023-12-08] MEDS: Acetaminophen 325 MG Tab PO PRN (08:05)
[2023-12-08] MEDS ORDERED: Furosemide 20 MG Tab PO SCH (09:00)
[2023-12-08] MEDS: Magnesium Oxide 400 MG Tab PO SCH (09:07)
[2023-12-08] MEDS: Losartan 50 MG Tab PO SCH (09:08)
[2023-12-08] MEDS: Aspirin 81 MG Tab.EC PO SCH (09:09)
[2023-12-08] MEDS: Furosemide 40 MG Tab PO SCH (09:12)
[2023-12-08] MEDS: Metoprolol Succinate 25 MG Tab.ER PO SCH (09:22)
[2023-12-08] MEDS: Magnesium Sulfate/Water 2 GM in Premix Bag 1 BAG IV SCH (09:25)
[2023-12-08] MEDS: Diltiazem IR 30 MG Tab PO SCH (15:30)
[2023-12-09] MEDS: predniSONE 20 MG Tab PO SCH (08:27)
[2023-12-09] MEDS: Diltiazem 180 MG Cap.CD PO SCH (11:27)
[2023-12-09] MEDS: Psyllium Husk Powder Sugar Free 5.85 GM Packet PO SCH (21:29)
[2023-12-10 08:03] LABS: HEMATOCRIT 46.2 % (34.3-46.0); MEAN CORPUSCULAR HEMOGLOBIN 30.9 pg (31.6-35.5); MEAN CORPUSCULAR HGB CONC 32.5 g/dL (31.6-35.5); MEAN CORPUSCULAR VOLUME 95.3 fL (81.4-99.0); RED BLOOD CELL COUNT 4.85 M/uL (3.77-5.24); WHITE BLOOD CELL COUNT,WBC 12.7 K/uL (3.2-11.0)
[2023-12-10 08:25] LABS: A/G RATIO 0.6 (1.2-2.2); ALANINE AMINOTRANSFERASE,ALT 63 U/L (12-78); ALKALINE PHOSPHATASE 57 U/L (46-116); ASPARTATE AMNIOTRANSFERASE,AST 41 U/L (15-37); BILIRUBIN TOTAL 0.7 mg/dL (0.2-1.0); BLOOD UREA NITROGEN,BUN 50 mg/dL (7-18); CALCIUM 9.3 mg/dL (8.5-10.1); CARBON DIOXIDE,CO2 27 mmol/L (21-32); CHLORIDE,CL 104 mmol/L (100-108); CREATININE 1.4 mg/dL (0.6-1.0); ESTIMATED GFR 37 mL/min (>60); GLUCOSE RANDOM 106 mg/dL (74-106); POTASSIUM,K 4.3 mmol/L (3.6-5.2); PROTEIN TOTAL,TP 8.1 g/dL (6.4-8.2); SODIUM,NA 138 mmol/L (140-148)
[2023-12-10] MEDS: predniSONE 20 MG Tab PO SCH (08:29)
[2023-12-10 08:31] LABS: ANION GAP 11.3 mmol/L (5.0-14.0)
[2023-12-10 10:57] VITALS: BP 135/80; PULSE 74
== END 2023-12-10 13:30 | disposition home health service (06) | DRG 193 ==
LOC: JP.ED 07:05 → JP.ICU 11:14
PROVIDERS: ADMIT Hospitalist; ATTEND Hospitalist
PROC: 4A133R1 Monitoring of Arterial Saturation, Peripheral, Percutaneous Approach (ICD-10-PCS; principal; 2023-12-07)
PROC: 5A09357 Assistance with Respiratory Ventilation, Less than 24 Consecutive Hours, Continuous Positive Airway Pressure (ICD-10-PCS; 2023-12-07)
DX: J18.9 Pneumonia, unspecified organism (principal); I50.43 Acute on chronic combined systolic (congestive) and diastolic (congestive) heart failure; J96.21 Acute and chronic respiratory failure with hypoxia; J44.9 Chronic obstructive pulmonary disease, unspecified; N18.9 Chronic kidney disease, unspecified; J96.22 Acute and chronic respiratory failure with hypercapnia; J44.0 Chronic obstructive pulmonary disease with (acute) lower respiratory infection; Z68.41 Body mass index [BMI] 40.0-44.9, adult; J44.1 Chronic obstructive pulmonary disease with (acute) exacerbation; Z68.39 Body mass index [BMI] 39.0-39.9, adult; I13.0 Hypertensive heart and chronic kidney disease with heart failure and stage 1 through stage 4 chronic kidney disease, or unspecified chronic kidney disease; Z66 Do not resuscitate; I48.91 Unspecified atrial fibrillation; N18.32 Chronic kidney disease, stage 3b; I25.10 Atherosclerotic heart disease of native coronary artery without angina pectoris; M19.90 Unspecified osteoarthritis, unspecified site; M54.9 Dorsalgia, unspecified; G89.29 Other chronic pain; F32.A Depression, unspecified; E66.9 Obesity, unspecified; H91.90 Unspecified hearing loss, unspecified ear; H54.7 Unspecified visual loss; Z79.01 Long term (current) use of anticoagulants; Z79.899 Other long term (current) drug therapy; Z98.49 Cataract extraction status, unspecified eye; Z98.890 Other specified postprocedural states; Z90.49 Acquired absence of other specified parts of digestive tract; Z90.710 Acquired absence of both cervix and uterus; Z94.9 Transplanted organ and tissue status, unspecified; Z96.659 Presence of unspecified artificial knee joint; Z90.722 Acquired absence of ovaries, bilateral; Z90.79 Acquired absence of other genital organ(s); I25.2 Old myocardial infarction; Z87.81 Personal history of (healed) traumatic fracture; Z99.81 Dependence on supplemental oxygen; Z95.828 Presence of other vascular implants and grafts
CPT/HCPCS: 36415; 36600 ×2; 71045 ×2; 71250; 80053; 82803 ×2; 83605 ×2; 83880; 84145; 84484; 85025; 86140; 87040 ×2; 93005; 96361; 96365; 96368; 96375; 99285; A9270; J0696; J1940; J2270; J3490 ×3; J7030; U0002; 80048; 83735; 85027; 87070; 87205; 94640; 97161-GP; 97530-GP; 99223; 99232; 99239; J0456; J1650; J2919; J3475; J7050; J7512; J7620

== ENCOUNTER 2024-10-15 11:09 | Emergency (ER) | payer MEDICARE ==
[2024-10-15 11:20] VITALS: PULSE 71
[2024-10-15 13:07] VITALS: BP 132/77
[2024-10-15 13:55] LABS: BASOPHILS ABSOLUTE AUTO 0.04 K/uL (0.00-0.10); BASOPHILS PERCENT AUTO 0.5 % (0.1-1.3); EOSINOPHILS ABSOLUTE AUTO 0.31 K/uL (0.00-0.40); EOSINOPHILS PERCENT AUTO 3.6 % (0.0-5.4); HEMATOCRIT 45.8 % (34.3-46.0); HEMOGLOBIN 14.9 g/dL (11.2-15.5); IMMATURE GRAN PERCENT AUTO 0.2 % (0.0-0.7); LYMPHOCYTES ABSOLUTE AUTO 1.36 K/uL (0.8-3.3); LYMPHOCYTES PERCENT AUTO 15.6 % (11.4-47.7); MEAN CORPUSCULAR HEMOGLOBIN 30.6 pg (31.6-35.5); MEAN CORPUSCULAR HGB CONC 32.5 g/dL (31.6-35.5); MONOCYTES ABSOLUTE AUTO 0.63 K/uL (0.20-0.90); MONOCYTES PERCENT AUTO 7.2 % (3.3-12.6); NEUTROPHILS ABSOLUTE AUTO 6.35 K/uL (1.0-7.6); NEUTROPHILS PERCENT AUTO 72.9 % (40.0-78.1); PLATELET COUNT,PLT 216 K/uL (130-375); RED BLOOD CELL COUNT 4.87 M/uL (3.77-5.24); WHITE BLOOD CELL COUNT,WBC 8.7 K/uL (3.2-11.0)
[2024-10-15 13:57] LABS: IMMATURE GRAN ABSOLUTE AUTO 0.02 K/uL (0.00-0.23)
[2024-10-15 14:12] LABS: C-REACTIVE PROTEIN 1.87 mg/dL (<0.50); CALCIUM 9.6 mg/dL (8.5-10.1); CREATININE 1.3 mg/dL (0.6-1.0); EST CRCL DRUG DOSING (CG) 28.99 mL/min; POTASSIUM,K 4.4 mmol/L (3.6-5.2)
[2024-10-15 14:14] LABS: ANION GAP 11.4 mmol/L (5.0-14.0)
[2024-10-15 14:20] LABS: LACTIC ACID 1.1 mmol/L (0.4-2.0)
== END 2024-10-15 15:05 | disposition home or self-care (01) ==
LOC: JP.ED 11:09
DX: J44.1 Chronic obstructive pulmonary disease with (acute) exacerbation (principal); I12.9 Hypertensive chronic kidney disease with stage 1 through stage 4 chronic kidney disease, or unspecified chronic kidney disease; I48.91 Unspecified atrial fibrillation; I25.10 Atherosclerotic heart disease of native coronary artery without angina pectoris; E66.9 Obesity, unspecified; J44.89 Other specified chronic obstructive pulmonary disease; M19.90 Unspecified osteoarthritis, unspecified site; N18.9 Chronic kidney disease, unspecified; Z79.899 Other long term (current) drug therapy; Z79.82 Long term (current) use of aspirin; Z91.040 Latex allergy status; Z79.02 Long term (current) use of antithrombotics/antiplatelets; Z79.51 Long term (current) use of inhaled steroids; Z90.710 Acquired absence of both cervix and uterus; Z90.49 Acquired absence of other specified parts of digestive tract; Z68.36 Body mass index [BMI] 36.0-36.9, adult
CPT/HCPCS: 36415; 71046; 71046-26; 80048; 83605; 85025; 86140; 87040; 99283; 99285